=== PATIENT | female | born 1955 | race Caucasian/White ===

== ENCOUNTER 2018-12-07 21:37 | Emergency (ER) | payer MEDICARE, OTHER ==
[~2018-12-07] VITALS: Ht 152.4 cm; Wt 62.6 kg
[2018-12-07] MEDS ORDERED: FAMOTIDINE 20 MG (PEPCID) TABLET PO STA (22:01)
[2018-12-07] MEDS ORDERED: NS IV 1000 ML 1,000 ML IV SCH (22:01)
--- NOTE | 2018-12-07 22:08 | ED Abdominal Pain ---
General Stated Complaint: LT SIDE ABD PAIN Source of Information: Patient, Spouse Exam Limitations: No Limitations History of Present Illness Date Seen by Provider: December 07, 2018 Time Seen by Provider: 21:46 Initial Comments Patient presents to ER by private conveyance with her and chief complaint of left-sided upper quadrant abdominal pain that started about 6 hours ago and has only progressively gotten worse. It comes and goes. It worse despite a 7 out of 10. Worse with movement. She has a history of EGD demonstrating hiatal hernia but no abdominal surgeries. She has poor appetite. She has a history of GERD and was on a chronic anti-acid production medicine but she does not take that anymore. She did not try any antacids because she says this feels different than the burning sensation in her chest that she will get sometimes with her GERD. She has a history of being very constipated and earlier this afternoon had a rather large 7 bowel movement. She denies having colonoscopy or history of IBS/IBD. No blood in the stool. She has not taken anything for the pain. She denies any nausea fever chills cough shortness of breath or dysuria. Allergies and Home Medications Allergies Coded Allergies: Penicillins (Verified Allergy, Unknown, 12/07/18) dimenhydrinate (Verified Allergy, Unknown, 12/07/18) Patient Home Medication List Home Medication List Reviewed: Yes Review of Systems Review of Systems Constitutional: No chills, No fever, No malaise EENTM: No Blurred Vision, No Double Vision Respiratory: Denies Cough, Denies Shortness of Air Cardiovascular: Denies Chest Pain, Denies Lightheadedness Gastrointestinal: Denies Abdomen Distended; Abdominal Pain, Constipated ( chronic); Denies Diarrhea, Denies Nausea Genitourinary: Denies Burning, Denies Discharge Musculoskeletal: No back pain, No joint pain Skin: No pruritus, No rash Past Uhanbsx-Aewjhq-Xbrelm Hx Patient Social History Alcohol Use: Denies Use Recreational Drug Use: No Smoking Status: Never a Smoker Recent Foreign Travel: No Contact w/Someone Who Travel: No Physical Exam Vital Signs Vital Signs - First Documented 12/07/18 21:47 Temp 97.7 Pulse 100 Resp 20 B/P (MAP) 155/99 (117) Pulse Ox 96 Capillary Refill : Height/Weight/BMI Height: '" Weight: lbs. oz. kg; BMI Method: General Appearance: WD/WN, no apparent distress HEENT: PERRL/EOMI, pharynx normal (oropharynx mildly dry) Respiratory: no respiratory distress, no accessory muscle use Cardiovascular: normal peripheral pulses, regular rate, rhythm Peripheral Pulses: 2+ Dorsalis Pedis (R), 2+ Left Dors-Pedis (L) Gastrointestinal: normal bowel sounds (quiescent), soft, no organomegaly; No distended; other (epigastric and left upper quadrant mild tenderness to palpation. Negative for Jones sign, Rovsing or McBurney's point tenderness, rebound tenderness or other mesenteric signs such as psoas.) Extremities: non-tender, normal capillary refill Neurologic/Psychiatric: alert, normal mood/affect, oriented x 3 Skin: normal color, warm/dry Progress/Results/Core Measures Results/Orders Lab Results Laboratory Tests Test 12/07/18 22:05 12/07/18 22:19 Range/Units White Blood Count 15.6 H 4.3-11.0 10^3/uL Red Blood Count 4.86 4.35-5.85 10^6/uL Hemoglobin 15.2 11.5-16.0 G/DL Hematocrit 45 35-52 % Mean Corpuscular Volume 93 80-99 FL Mean Corpuscular Hemoglobin 31 25-34 PG Mean Corpuscular Hemoglobin Concent 34 32-36 G/DL Red Cell Distribution Width 13.2 10.0-14.5 % Platelet Count 240 130-400 10^3/uL Mean Platelet Volume 11.0 H 7.4-10.4 FL Neutrophils (%) (Auto) 87 H 42-75 % Lymphocytes (%) (Auto) 8 L 12-44 % Monocytes (%) (Auto) 4 0-12 % Eosinophils (%) (Auto) 0 0-10 % Basophils (%) (Auto) 0 0-10 % Neutrophils # (Auto) 13.6 H 1.8-7.8 X 10^3 Lymphocytes # (Auto) 1.2 1.0-4.0 X 10^3 Monocytes # (Auto) 0.7 0.0-1.0 X 10^3 Eosinophils # (Auto) 0.1 0.0-0.3 10^3/uL Basophils # (Auto) 0.1 0.0-0.1 10^3/uL Neutrophils % (Manual) 72 % Lymphocytes % (Manual) 8 % Monocytes % (Manual) 2 % Eosinophils % (Manual) 2 % Basophils % (Manual) 0 % Band Neutrophils 16 % Blood Morphology Comment NORMAL Sodium Level 143 135-145 MMOL/L Potassium Level 4.2 3.6-5.0 MMOL/L Chloride Level 103 98-107 MMOL/L Carbon Dioxide Level 22 21-32 MMOL/L Anion Gap 18 H 5-14 MMOL/L Blood Urea Nitrogen 21 H 7-18 MG/DL Creatinine 0.79 0.60-1.30 MG/DL Estimat Glomerular Filtration Rate > 60 BUN/Creatinine Ratio 27 Glucose Level 133 H 70-105 MG/DL Calcium Level 9.2 8.5-10.1 MG/DL Corrected Calcium 8.5-10.1 MG/DL Total Bilirubin 1.2 H 0.1-1.0 MG/DL Aspartate Amino Transf (AST/SGOT) 18 5-34 U/L Alanine Aminotransferase (ALT/SGPT) 12 0-55 U/L Alkaline Phosphatase 49 40-136 U/L Total Protein 7.2 6.4-8.2 GM/DL Albumin 4.6 H 3.2-4.5 GM/DL Lipase 26 8-78 U/L Urine Color YELLOW Urine Clarity CLOUDY Urine pH 8.0 5-9 Urine Specific [place] 1.010 L 1.016-1.022 Urine Protein 1+ H NEGATIVE Urine Glucose (UA) NEGATIVE NEGATIVE Urine Ketones TRACE H NEGATIVE Urine Nitrite POSITIVE H NEGATIVE Urine Bilirubin NEGATIVE NEGATIVE Urine Urobilinogen 0.2 NORMAL MG/DL Urine Leukocyte Esterase 3+ H NEGATIVE Urine RBC (Auto) 1+ H NEGATIVE Urine RBC 2-5 H /HPF Urine WBC 25-50 H /HPF Urine Squamous Epithelial Cells 5-10 /HPF Urine Crystals PRESENT H /LPF Urine Triple Phosphate Crystals LARGE H /LPF Urine Bacteria LARGE H /HPF Urine Casts NONE /LPF Urine Mucus NEGATIVE /LPF Urine Culture Indicated YES My Orders Orders - MJ ERICKSON Cbc With Automated Diff (12/07/18 22:00) Comprehensive Metabolic Panel (12/07/18 22:00) Lipase (12/07/18 22:00) Ed Iv/Invasive Line Start (12/07/18 22:01) Ns Iv 1000 Ml (Sodium Chloride 0.9%) (12/07/18 22:01) Lidocaine 2% Viscous 15 Ml (Xylocaine Vi (12/07/18 22:15) Famotidine Tablet (Pepcid Tablet) (12/07/18 22:01) Antacid Suspension (Mylanta Suspension (12/07/18 22:15) Manual Differential (12/07/18 22:05) Ua Culture If Indicated (12/07/18 22:18) Ct Abdomen/Pelvis W (12/07/18 22:36) Urine Culture (12/07/18 22:19) Iohexol Injection (Omnipaque 350 Mg/Ml 1 (12/07/18 22:45) Received Contrast (Hold Metformin- Contr (12/07/18 22:45) Ns (Ivpb) (Sodium Chloride 0.9% Ivpb Bag (12/07/18 22:45) Ceftriaxone For Iv Use (Rocephin For I (12/08/18 00:00) Ketorolac Injection (Toradol Injection) (12/08/18 00:00) Rx-Ondansetron Po (Rx-Zofran Po) (12/08/18 00:44) Medications Given in ED Current Medications Medications Dose Ordered Sig/Shiraz Route Start Time Stop Time Status Last Admin Dose Admin Al Hydrox/Mg Hydrox/Simethicone 30 ml ONCE ONCE PO 12/07/18 22:15 12/07/18 22:16 DC 12/07/18 22:19 30 ML Ceftriaxone Sodium 1000 mg/ Sterile Water 10 ml @ 200 mls/hr ONCE ONCE IV 12/08/18 00:00 12/08/18 00:02 DC 12/08/18 00:12 200 MLS/HR Iohexol 100 ml ONCE ONCE IV 12/07/18 22:45 12/07/18 22:46 DC 12/07/18 22:56 100 ML Ketorolac Tromethamine 30 mg ONCE ONCE IVP 12/08/18 00:00 12/08/18 00:02 DC 12/08/18 00:11 30 MG Lidocaine HCl 15 ml ONCE ONCE PO 12/07/18 22:15 12/07/18 22:16 DC 12/07/18 22:20 15 ML Sodium Chloride 100 ml ONCE ONCE IV 12/07/18 22:45 12/07/18 22:46 DC 12/07/18 22:56 100 ML Vital Signs/I&O 12/07/18 21:47 Temp 97.7 Pulse 100 Resp 20 B/P (MAP) 155/99 (117) Pulse Ox 96 12/08/18 00:00 Intake Total 1000 ml Balance 1000 ml Progress Progress Note #1: Time: 22:07 Progress Note Patient does not appear to be in a lot of acute distress or any give her a liter of fluids and as she seems to be chronically constipated with dehydration per her history. We will check some blood work included a lipase and give her a GI cocktail and then re-evaluate. Constipation, pancreatitis, gastritis, gastroenteritis, ulcer are all potential diagnoses. Progress Note #2: Time: 22:38 Progress Note The patient's pain improved significantly after the GI cocktail and she does not want anything further at the moment. She still having no nausea. Her in white blood cells are 15.6 thousand which is a modest elevation and has prompted us to go ahead and collect a CT of the abdomen and pelvis with contrast. Progress Note #3: Time: 00:05 Progress Note Plan to treat the patient's urinary tract infection with Rocephin. Her GI cocktails wearing off so we'll give her some Toradol. Suspects she has some gastritis possible ulcer but nothing seen on CT. We will allow her to go home she can follow-up in the next day or 2 with her primary care doctor and set up for another EGD. We offered her a referral to the surgeon contact lens blocker and cutter that she would prefer to see Dr. Mustafa first. We have offered her a stay in the hospital if she felt that her symptoms are not under adequate control but she would prefer to go home as would her . Diagnostic Imaging Diagonstic Imaging: CT (contrast) Plain Films/CT/US/NM/MRI: abdomen, pelvis Comments Thickening clean rectal vault correlate with infectious/inflammatory proctitis. Large hiatal hernia. Hepatic steatosis. Nonobstructive punctate stone in the left kidney. Reviewed: Reviewed by Me Departure Impression Primary Impression: Gastritis Qualified Codes: K29.00 - Acute gastritis without bleeding Additional Impressions: History of hiatal hernia UTI (urinary tract infection) Qualified Codes: N30.00 - Acute cystitis without hematuria Disposition: HOME, SELF-CARE Condition: Improved Departure-Patient Inst. Decision time for Depature: 01:07 Referrals: RICK MUSTAFA MD (PCP) Primary Care Physician Patient Instructions: Acute Cystitis (DC), Gastritis (DC), Ulcer and Gastritis Diet Add. Discharge Instructions: Follow-up in the next few days with Dr. mustafa to discuss getting another EGD done to diagnose your epigastric abdominal pain. Use Tylenol 1000 mg in addition to ibuprofen 800 mg every 8 hours each as needed for pain. Use omeprazole 40 mg daily for the next 4 weeks. Use the Carafate 1 tablet 30 minutes before meals and at bedtime (4 times a day ) for the next 2 weeks to help calm down your abdominal pain. If you have nausea use one tablet of Zofran every 6 hours as needed. upfitter the antibiotics and take one capsule twice a day with food for the next week. If you have significant fever, intractable abdominal pain or nausea vomiting then you should return to the ER. Scripts Sucralfate (Carafate) 1 Gm Tablet 1 GM PO QIDACHS for 14 Days, #56 TAB 0 Refills Prov: MJ ERICKSON 12/08/18 Omeprazole (Omeprazole) 40 Mg Capsule.dr 40 MG PO DAILY for 30 Days, #30 CAP 0 Refills Prov: MJ ERICKSON 12/08/18 Ondansetron (Ondansetron Odt) 4 Mg Tab.rapdis 4 MG PO Q6H PRN for NAUSEA/VOMITING-1ST LINE, #8 TAB 0 Refills Prov: MJ ERICKSON 12/08/18 Cephalexin (Cephalexin) 500 Mg Tablet 500 MG PO BID for 7 Days, #14 TAB 0 Refills Prov: MJ ERICKSON 12/08/18 MJ ERICKSON December 07, 2018 22:08
[2018-12-07 22:14] LABS: BASOPHILS # (AUTO) 0.1 10^3/uL (0.0-0.1); BASOPHILS % (AUTO) 0 % (0-10); EOSINOPHILS # (AUTO) 0.1 10^3/uL (0.0-0.3); EOSINOPHILS % (AUTO) 0 % (0-10); HEMATOCRIT 45 % (35-52); HEMOGLOBIN 15.2 G/DL (11.5-16.0); LYMPHOCYTES # (AUTO) 1.2 X 10^3 (1.0-4.0); LYMPHOCYTES % (AUTO) 8 % (12-44); MEAN CORPUSCULAR HEMOGLOBIN 31 PG (25-34); MEAN CORPUSCULAR HGB CONC 34 G/DL (32-36); MEAN CORPUSCULAR VOLUME 93 FL (80-99); MONOCYTES # (AUTO) 0.7 X 10^3 (0.0-1.0); MONOCYTES % (AUTO) 4 % (0-12); NEUTROPHILS # (AUTO) 13.6 X 10^3 (1.8-7.8); NEUTROPHILS % (AUTO) 87 % (42-75); PLATELET COUNT 240 10^3/uL (130-400); RED CELL DISTRIBUTION WIDTH 13.2 % (10.0-14.5); WHITE BLOOD COUNT 15.6 10^3/uL (4.3-11.0)
[2018-12-07] MEDS ORDERED: ANTACID SUSP 30 ML UDC (MYLANTA) PO ONE (22:15)
[2018-12-07] MEDS ORDERED: LIDOCAINE 2% VISCOUS 15 ML UDC PO ONE (22:15)
[2018-12-07 22:26] LABS: BUN/CREATININE RATIO 27; CARBON DIOXIDE 22 MMOL/L (21-32); CHLORIDE 103 MMOL/L (98-107); CREATININE SERUM 0.79 MG/DL (0.60-1.30); GFR ESTIMATED > 60; GLUCOSE 133 MG/DL (70-105); POTASSIUM 4.2 MMOL/L (3.6-5.0); SODIUM 143 MMOL/L (135-145)
[2018-12-07 22:27] LABS: ALANINE AMINOTRANSFERASE 12 U/L (0-55); ALBUMIN 4.6 GM/DL (3.2-4.5); ALKALINE PHOSPHATASE 49 U/L (40-136); BILIRUBIN,TOTAL 1.2 MG/DL (0.1-1.0); CALCIUM 9.2 MG/DL (8.5-10.1); LIPASE 26 U/L (8-78); TOTAL PROTEIN 7.2 GM/DL (6.4-8.2)
[2018-12-07 22:36] LABS: BILIRUBIN,URINE NEGATIVE (NEGATIVE); CLARITY,URINE CLOUDY; COLOR,URINE YELLOW; GLUCOSE, URINE (UA) NEGATIVE (NEGATIVE); KETONES,URINE TRACE (NEGATIVE); LEUKOCYTE ESTERASE ,URINE 3+ (NEGATIVE); NITRITE,URINE POSITIVE (NEGATIVE); PROTEIN,URINE 1+ (NEGATIVE); UROBILINOGEN,URINE 0.2 MG/DL (NORMAL)
[2018-12-07 22:37] LABS: BACTERIA,URINE LARGE /HPF; TRIPLE PHOSPHATE CRYSTAL,UR LARGE /LPF; WBC,URINE 25-50 /HPF
[2018-12-07 22:38] LABS: BAND NEUTROPHILS 16 %; BASOPHILS % (MANUAL) 0 %; EOSINOPHILS % (MANUAL) 2 %; LYMPHOCYTES % (MANUAL) 8 %; MONOCYTES % (MANUAL) 2 %; NEUTROPHILS % (MANUAL) 72 %; RBC MORPH NORMAL
[2018-12-07] MEDS ORDERED: HOLD METFORMIN - RECEIVED CONTRAST 20 ML VIAL IV SCH (22:45)
[2018-12-07] MEDS ORDERED: NS 100 ML (IVPB) BAG IV ONE (22:45)
[2018-12-07] MEDS ORDERED: IOHEXOL 350 MG/ML 100 ML (OMNIPAQUE 350) VIAL IV ONE (22:45)
[2018-12-08] MEDS ORDERED: cefTRIAXone FOR IV USE 1,000 MG in WATER (STERILE) FOR INJECTION 10 ML IV ONE ×2
[2018-12-08] MEDS ORDERED: KETOROLAC 30 MG/ML VIAL IVP ONE
[2018-12-08] MEDS ORDERED: RX-ONDANSETRON 4 MG ODT (ZOFRAN) PPK #4 PO STA (00:44)
[2018-12-08] MEDS ORDERED: CEPH500T PO (01:13)
[2018-12-08] MEDS ORDERED: OMEP40CA36 PO (01:13)
[2018-12-08] MEDS ORDERED: SUCR1TAB36 PO (01:13)
[2018-12-08] MEDS ORDERED: ONDA4TAB11 PO (01:13)
[2018-12-08 01:23] VITALS: BP 140/82
--- NOTE | 2018-12-08 07:02 | Diagnostic Imaging Report ---
PROCEDURE: CT abdomen and pelvis with contrast. TECHNIQUE: Multiple contiguous axial images were obtained through the abdomen and pelvis after administration of intravenous contrast. Auto Exposure Controls were utilized during the CT exam to meet ALARA standards for radiation dose reduction. DATE: December 07, 2018. COMPARISON: None. INDICATION: 63-year-old female, left-sided abdominal pain. Nausea, vomiting, diarrhea. FINDINGS: There is mild atelectasis in the lung bases. The heart is not grossly enlarged. There is no pericardial effusion. The liver is unremarkable in size and contour. There is a 3 mm low-attenuation lesion in the right lobe of the liver on axial image 26 which is too small to characterize. The main, right, and left portal veins are patent. The gallbladder is unremarkable. There is no intrahepatic or extrahepatic bile duct dilation. The main pancreatic duct is not abnormally dilated. Unremarkable appearance of the pancreatic parenchyma. The spleen is normal in size. The adrenal glands are unremarkable. There are subcentimeter low-attenuation right renal lesions on axial image 23 which are too small to characterize. There is no hydronephrosis. There is no identified renal or ureteral stone. The urinary bladder is grossly unremarkable in appearance. The uterus is not seen and may be surgically absent. There is very prominent abnormal wall thickening at the level of the rectum with prominent adjacent inflammatory stranding and fluid type attenuation in the presacral soft tissues. The intestinal tract is not distended. The appendix is not well seen. There are no secondary findings to specifically suggest acute appendicitis. There is no free intraperitoneal air. There is no drainable fluid collection. There is a moderate to large hiatal hernia. There is no identified abnormally enlarged lymph node in the abdomen or pelvis which meets CT size criteria for adenopathy. Very mild atherosclerotic calcifications are noted. There is no identified acute bony abnormality. IMPRESSION: CT ABDOMEN AND PELVIS. 1. Very prominent abnormal wall thickening at the level of the rectum with adjacent inflammatory stranding and fluid in the pre-sacral soft tissues. Differential diagnostic considerations would include an infectious or inflammatory colitis. Malignancy is also in the differential diagnosis. 2. Moderate to large hiatal hernia. Dictated by: Dictated on workstation # [id number]
== END 2018-12-08 01:23 | disposition home or self-care (01) ==
LOC: ER FS 21:39
DX: K29.70 Gastritis, unspecified, without bleeding (principal); N39.0 Urinary tract infection, site not specified; K21.9 Gastro-esophageal reflux disease without esophagitis; Z88.0 Allergy status to penicillin; Z88.8 Allergy status to other drugs, medicaments and biological substances; Z87.19 Personal history of other diseases of the digestive system
CPT/HCPCS: 36415; 74177; 80053; 81000; 83690; 85007; 85027; 87077; 87088

== ENCOUNTER 2019-02-02 19:45 | Emergency (ER) | payer MEDICARE ==
[~2019-02-02] VITALS: Ht 152.4 cm; Wt 62.6 kg
[~2019-02-02 19:45] MED LIST: CEPH500T PO; OMEP40CA36 PO; ONDA4TAB11 PO; SUCR1TAB36 PO
--- OUTSIDE RECORDS SUMMARY | 2019-02-02 19:55 | XMS REPORT | Continuity of Care Document ---
Author Organization Unknown Address Unknown Allergies Active Description Code Type Severity Reaction Onset Reported/Identified Relationship to Patient Clinical Status Yes dimenhydrinate [id number] Drug Allergy Unknown N/A 12/07/2018 Yes No Known Drug Allergies [id number] Drug Allergy Unknown N/A 12/07/2018 Yes Penicillins [id number] Drug Allergy Unknown N/A 12/07/2018 Medications There is no data. Problems Date Dx Coded Attending Type Code Diagnosis Diagnosed By 12/08/2018 MJ ERICKSON MD Ot K21.9 GASTRO-ESOPHAGEAL REFLUX DISEASE WITHOUT 12/08/2018 MJ ERICKSON MD Ot K29.70 GASTRITIS, UNSPECIFIED, WITHOUT BLEEDING 12/08/2018 MJ ERICKSON MD Ot N39.0 URINARY TRACT INFECTION, SITE NOT SPECIF 12/08/2018 MJ ERICKSON MD Ot R10.12 LEFT UPPER QUADRANT PAIN 12/08/2018 MJ ERICKSON MD Ot Z87.19 PERSONAL HISTORY OF OTHER DISEASES OF 12/08/2018 MJ ERICKSON MD Ot Z88.0 ALLERGY STATUS TO PENICILLIN 12/08/2018 MJ ERICKSON MD Ot Z88.8 ALLERGY STATUS TO OTH DRUG/MEDS/BIOL SUB 12/09/2018 MJ ERICKSON MD Ot K21.9 GASTRO-ESOPHAGEAL REFLUX DISEASE WITHOUT 12/09/2018 MJ ERICKSON MD Ot K29.70 GASTRITIS, UNSPECIFIED, WITHOUT BLEEDING 12/09/2018 MJ ERICKSON MD Ot N39.0 URINARY TRACT INFECTION, SITE NOT SPECIF 12/09/2018 MJ ERICKSON MD Ot R10.12 LEFT UPPER QUADRANT PAIN 12/09/2018 MJ ERICKSON MD Ot Z87.19 PERSONAL HISTORY OF OTHER DISEASES OF 12/09/2018 MJ ERICKSON MD Ot Z88.0 ALLERGY STATUS TO PENICILLIN 12/09/2018 MJ ERICKSON MD Ot Z88.8 ALLERGY STATUS TO OTH DRUG/MEDS/BIOL SUB 12/13/2018 MJ ERICKSON MD Ot K21.9 GASTRO-ESOPHAGEAL REFLUX DISEASE WITHOUT 12/13/2018 MJ ERICKSON MD, Ot K29.70 GASTRITIS, UNSPECIFIED, WITHOUT BLEEDING 12/13/2018 MJ ERICKSON MD Ot N39.0 URINARY TRACT INFECTION, SITE NOT SPECIF 12/13/2018 MJ ERICKSON MD Ot R10.12 LEFT UPPER QUADRANT PAIN 12/13/2018 MJ ERICKSON MD, Ot Z87.19 PERSONAL HISTORY OF OTHER DISEASES OF TH 12/13/2018 MJ ERICKSON MD, Ot Z88.0 ALLERGY STATUS TO PENICILLIN 12/13/2018 MJ ERICKSON MD, Ot Z88.8 ALLERGY STATUS TO OTH DRUG/MEDS/BIOL SUB Procedures There is no data. Results Test Result Range Complete blood count (CBC) with automated white blood cell (WBC) differential - 12/07/18 22:05 Blood leukocytes automated count (number/volume) 15.6 10*3/uL 4.3-11.0 Blood erythrocytes automated count (number/volume) 4.86 10*6/uL 4.35-5.85 Venous blood hemoglobin measurement (mass/volume) 15.2 g/dL 11.5-16.0 Blood hematocrit (volume fraction) 45 % 35-52 Automated erythrocyte mean corpuscular volume 93 [foz_us] 80-99 Automated erythrocyte mean corpuscular hemoglobin (mass per erythrocyte) 31 pg 25-34 Automated erythrocyte mean corpuscular hemoglobin concentration measurement (mass/volume) 34 g/dL 32-36 Automated erythrocyte distribution width ratio 13.2 % 10.0- 14.5 Automated blood platelet count (count/volume) 240 10*3/uL 130-400 Automated blood platelet mean volume measurement 11.0 [foz_us] 7.4-10.4 Automated blood neutrophils/100 leukocytes 87 % 42-75 Automated blood lymphocytes/100 leukocytes 8 % 12-44 Blood monocytes/100 leukocytes 4 % 0-12 Automated blood eosinophils/100 leukocytes 0 % 0-10 Automated blood basophils/100 leukocytes 0 % 0-10 Blood neutrophils automated count (number/volume) 13.6 10*3 1.8-7.8 Blood lymphocytes automated count (number/volume) 1.2 10*3 1.0-4.0 Blood monocytes automated count (number/volume) 0.7 10*3 0.0- 1.0 Automated eosinophil count 0.1 10*3/uL 0.0-0.3 Automated blood basophil count (count/volume) 0.1 10*3/uL 0.0-0.1 Comprehensive metabolic panel - 12/07/18 22:05 Serum or plasma sodium measurement (moles/volume) 143 mmol/L 135-145 Serum or plasma potassium measurement (moles/volume) 4.2 mmol/L 3.6-5.0 Serum or plasma chloride measurement (moles/volume) 103 mmol/L 98-107 Carbon dioxide 22 mmol/L 21-32 Serum or plasma anion gap determination (moles/volume) 18 mmol/L 5-14 Serum or plasma urea nitrogen measurement (mass/volume) 21 mg/dL 7-18 Serum or plasma creatinine measurement (mass/volume) 0.79 mg/dL 0.60-1.30 Serum or plasma urea nitrogen/creatinine mass ratio 27 NRG Serum or plasma creatinine measurement with calculation of estimated glomerular filtration rate > NRG Serum or plasma glucose measurement (mass/volume) 133 mg/dL 70-105 Serum or plasma calcium measurement (mass/volume) 9.2 mg/dL 8.5-10.1 Serum or plasma total bilirubin measurement (mass/volume) 1.2 mg/dL 0.1-1.0 Serum or plasma alkaline phosphatase measurement (enzymatic activity/volume) 49 U/L 40-136 Serum or plasma aspartate aminotransferase measurement (enzymatic activity/volume) 18 U/L 5-34 Serum or plasma alanine aminotransferase measurement (enzymatic activity/volume) 12 U/L 0-55 Serum or plasma protein measurement (mass/volume) 7.2 g/dL 6.4-8.2 Serum or plasma albumin measurement (mass/volume) 4.6 g/dL 3.2-4.5 Lipase - 12/07/18 22:05 Lipase 26 U/L 8-78 Blood manual differential performed detection - 12/07/18 22:05 Blood monocytes/100 leukocytes 2 % NRG Manual blood segmented neutrophils/100 leukocytes 72 % NRG Blood band neutrophils/100 leukocytes 16 % NRG Manual blood lymphocytes/100 leukocytes 8 % NRG Manual eosinophils/100 leukocytes in nose 2 % NRG Manual blood basophils/100 leukocytes 0 % NRG Blood erythrocyte morphology finding identification NORMAL NRG Complete urinalysis with reflex to culture - 12/07/18 22:19 Urine color determination YELLOW NRG Urine clarity determination CLOUDY NRG Urine pH measurement by test strip 8.0 5-9 Specific gravity of urine by test strip 1.010 1.016-1.022 Urine protein assay by test strip, semi-quantitative 1+ NEGATIVE Urine glucose detection by automated test strip NEGATIVE NEGATIVE Erythrocytes detection in urine sediment by light microscopy 1+ NEGATIVE Urine ketones detection by automated test strip TRACE NEGATIVE Urine nitrite detection by test strip POSITIVE NEGATIVE Urine total bilirubin detection by test strip NEGATIVE NEGATIVE Urine urobilinogen measurement by automated test strip (mass/volume) 0.2 mg/dL NORMAL Urine leukocyte esterase detection by dipstick 3+ NEGATIVE Automated urine sediment erythrocyte count by microscopy (number/high power field) [HPF] NRG Automated urine sediment leukocyte count by microscopy (number/high power field) [HPF] NRG Bacteria detection in urine sediment by light microscopy LARGE NRG Squamous epithelial cells detection in urine sediment by light microscopy 5-10 NRG Crystals detection in urine sediment by light microscopy PRESENT NRG Casts detection in urine sediment by light microscopy NONE NRG Mucus detection in urine sediment by light microscopy NEGATIVE NRG Complete urinalysis with reflex to culture YES NRG Triple phosphate crystals detection in urine sediment by light microscopy LARGE NRG Bacterial urine culture - 12/07/18 22:19 Bacterial urine culture [id number] NRG COLONY COUNT >100,000/ML NRG FTX;REPORTABLE SUSCEPTIBILITY REPORTED [id number] NRG RML Sensitivity Panel - 12/07/18 22:19 Gentamicin susceptibility test by minimum inhibitory concentration <= NRG Trimethoprim/sulfamethoxazole susceptibility test by minimum inhibitoryconcentration S NRG Levofloxacin susceptibility test by minimum inhibitory concentration <= NRG Ampicillin susceptibility test by minimum inhibitory concentration R NRG Cefazolin susceptibility test by minimum inhibitory concentration R NRG Ceftriaxone susceptibility test by minimum inhibitory concentration <= NRG Ciprofloxacin susceptibility test by minimum inhibitory concentration <= NRG Meropenem susceptibility test by minimum inhibitory concentration <= NRG Nitrofurantoin susceptibility test by minimum inhibitory concentration > NRG Amoxicillin and clavulanate potassium susc ADELINA <= NRG Encounters ACCT No. Visit Date/Time Discharge Status Pt. Type Provider Facility Loc./Unit Complaint [id number] 12/07/2018 21:39:00 12/08/2018 01:23:00 DIS Emergency DRE JARRELL, [facility] ER FS LT SIDE ABD PAIN
--- NOTE | 2019-02-02 19:56 | ED Abdominal Pain ---
General Stated Complaint: PAIN IN LT SIDE ABD Source of Information: Patient, Old Records, RN Notes Reviewed Exam Limitations: No Limitations History of Present Illness Date Seen by Provider: Feb 02, 2019 Time Seen by Provider: 19:56 Allergies and Home Medications Allergies Coded Allergies: Penicillins (Verified Allergy, Unknown, 12/07/18) dimenhydrinate (Verified Allergy, Unknown, 12/07/18) Home Medications Cephalexin 500 Mg Tablet, 500 MG PO BID Prescribed by: MJ ERICKSON on 12/08/18112 Omeprazole 40 Mg Capsule.dr, 40 MG PO DAILY Prescribed by: MJ ERICKSON on 12/08/18112 Ondansetron 4 Mg Tab.rapdis, 4 MG PO Q6H PRN for NAUSEA/VOMITING-1ST LINE Prescribed by: MJ ERICKSON on 12/08/18112 Sucralfate 1 Gm Tablet, 1 GM PO QIDACHS Prescribed by: MJ ERICKSON on 12/08/18112 Past Uzlbqht-Wjznxj-Aemnhj Hx Patient Social History 2nd Hand Smoke Exposure: No Recent Foreign Travel: No Contact w/Someone Who Travel: No Recent Hopitalizations: No Seasonal Allergies Seasonal Allergies: Yes Past Medical History Surgeries: Yes (MULTIPLE ORTHO ON BILATERAL LEGS) Appendectomy, Orthopedic Respiratory: No Cardiac: No Neurological: No Genitourinary: No (INCONTINENCE) Gastroesophageal Reflux, Hiatal Hernia Musculoskeletal: Yes (POLIO) Foot Drop Endocrine: No HEENT: No Cancer: No Psychosocial: No Integumentary: No Blood Disorders: No Physical Exam Vital Signs Vital Signs - First Documented 02/02/19 19:48 Temp 98.6 Pulse 72 Resp 16 B/P (MAP) 141/69 (93) Pulse Ox 97 O2 Delivery Room Air Capillary Refill : Height/Weight/BMI Height: 5'0" Weight: 138lbs. 0oz. 62.767057gi; BMI Method:Stated Progress/Results/Core Measures Results/Orders Lab Results Laboratory Tests Test 02/02/19 20:15 02/02/19 22:00 Range/Units White Blood Count 6.9 4.3-11.0 10^3/uL Red Blood Count 4.62 4.35-5.85 10^6/uL Hemoglobin 14.1 11.5-16.0 G/DL Hematocrit 43 35-52 % Mean Corpuscular Volume 93 80-99 FL Mean Corpuscular Hemoglobin 31 25-34 PG Mean Corpuscular Hemoglobin Concent 33 32-36 G/DL Red Cell Distribution Width 13.2 10.0-14.5 % Platelet Count 233 130-400 10^3/uL Mean Platelet Volume 10.9 H 7.4-10.4 FL Neutrophils (%) (Auto) 60 42-75 % Lymphocytes (%) (Auto) 29 12-44 % Monocytes (%) (Auto) 8 0-12 % Eosinophils (%) (Auto) 3 0-10 % Basophils (%) (Auto) 1 0-10 % Neutrophils # (Auto) 4.1 1.8-7.8 X 10^3 Lymphocytes # (Auto) 2.0 1.0-4.0 X 10^3 Monocytes # (Auto) 0.6 0.0-1.0 X 10^3 Eosinophils # (Auto) 0.2 0.0-0.3 10^3/uL Basophils # (Auto) 0.1 0.0-0.1 10^3/uL Sodium Level 144 135-145 MMOL/L Potassium Level 3.6 3.6-5.0 MMOL/L Chloride Level 104 98-107 MMOL/L Carbon Dioxide Level 26 21-32 MMOL/L Anion Gap 14 5-14 MMOL/L Blood Urea Nitrogen 22 H 7-18 MG/DL Creatinine 0.81 0.60-1.30 MG/DL Estimat Glomerular Filtration Rate > 60 BUN/Creatinine Ratio 27 Glucose Level 101 70-105 MG/DL Calcium Level 9.8 8.5-10.1 MG/DL Corrected Calcium 9.4 8.5-10.1 MG/DL Total Bilirubin 1.2 H 0.1-1.0 MG/DL Aspartate Amino Transf (AST/SGOT) 17 5-34 U/L Alanine Aminotransferase (ALT/SGPT) 12 0-55 U/L Alkaline Phosphatase 58 40-136 U/L Total Protein 6.9 6.4-8.2 GM/DL Albumin 4.5 3.2-4.5 GM/DL Lipase 41 8-78 U/L Urine Color YELLOW Urine Clarity CLEAR Urine pH 7.0 5-9 Urine Specific [place] <1.005 1.016-1.022 Urine Protein NEGATIVE NEGATIVE Urine Glucose (UA) NEGATIVE NEGATIVE Urine Ketones NEGATIVE NEGATIVE Urine Nitrite NEGATIVE NEGATIVE Urine Bilirubin NEGATIVE NEGATIVE Urine Urobilinogen 0.2 NORMAL MG/DL Urine Leukocyte Esterase NEGATIVE NEGATIVE Urine RBC (Auto) NEGATIVE NEGATIVE Urine RBC NONE /HPF Urine WBC NONE /HPF Urine Squamous Epithelial Cells 5-10 /HPF Urine Crystals NONE /LPF Urine Bacteria NONE /HPF Urine Casts NONE /LPF Urine Mucus NEGATIVE /LPF Urine Culture Indicated NO My Orders Orders - GISELLA ZARATE DO Ed Iv/Invasive Line Start (02/02/19 20:06) Cbc With Automated Diff (02/02/19 20:06) Comprehensive Metabolic Panel (02/02/19 20:06) Lipase (02/02/19 20:06) Ua Culture If Indicated (02/02/19 20:06) Ct Abdomen/Pelvis W (02/02/19 21:07) Iohexol Injection (Omnipaque 350 Mg/Ml 1 (02/02/19 21:30) Received Contrast (Hold Metformin- Contr (02/02/19 21:30) Ns (Ivpb) (Sodium Chloride 0.9% Ivpb Bag (02/02/19 21:30) Ketorolac Injection (Toradol Injection) (02/02/19 22:30) Pantoprazole Tablet (Protonix Tablet) (02/02/19 22:30) Medications Given in ED Current Medications Medications Dose Ordered Sig/Shiraz Route Start Time Stop Time Status Last Admin Dose Admin Iohexol 100 ml ONCE ONCE IV 02/02/19 21:30 02/02/19 21:31 DC 02/02/19 21:26 100 ML Sodium Chloride 100 ml ONCE ONCE IV 02/02/19 21:30 02/02/19 21:31 DC 02/02/19 21:26 100 ML Vital Signs/I&O 02/02/19 19:48 Temp 98.6 Pulse 72 Resp 16 B/P (MAP) 141/69 (93) Pulse Ox 97 O2 Delivery Room Air Departure Impression Primary Impression: Left upper quadrant abdominal pain of unknown etiology Additional Impressions: Hiatal hernia Proctocolitis Disposition: HOME, SELF-CARE Condition: Stable Departure-Patient Inst. Decision time for Depature: 22:33 Referrals: SELFRICK MD (PCP) Primary Care Physician Patient Instructions: Hiatal Hernia (DC), Proctitis Add. Discharge Instructions: RECOMMEND OBTAINING A REFERRAL FROM YOUR PCP FOR A COLONOSCOPY TO EVALUATE YOUR RECTUM BETTER. Scripts Ondansetron (Ondansetron Odt) 4 Mg Tab.rapdis 4 MG PO Q6H PRN for NAUSEA/VOMITING, #10 TAB 1 Refill Prov: GISELLA ZARATE DO 02/02/19 Sucralfate (Carafate) 1 Gm Tablet 1 GM PO ACHS for 30 Days, #120 TAB 2 Refills Prov: GISELLA ZARATE DO 02/02/19 Esomeprazole Magnesium (Nexium 24Hr) 20 Mg Capsule.dr 20 MG PO DAILY for 30 Days, #30 CAP 2 Refills Prov: GISELLA ZARATE DO 02/02/19 GISELLA ZARATE DO Feb 02, 2019 19:56
[2019-02-02 20:21] LABS: HEMATOCRIT 43 % (35-52); HEMOGLOBIN 14.1 G/DL (11.5-16.0); MEAN CORPUSCULAR HEMOGLOBIN 31 PG (25-34); MEAN CORPUSCULAR HGB CONC 33 G/DL (32-36); MEAN CORPUSCULAR VOLUME 93 FL (80-99); WHITE BLOOD COUNT 6.9 10^3/uL (4.3-11.0)
[2019-02-02 20:22] LABS: BASOPHILS # (AUTO) 0.1 10^3/uL (0.0-0.1); BASOPHILS % (AUTO) 1 % (0-10); EOSINOPHILS # (AUTO) 0.2 10^3/uL (0.0-0.3); EOSINOPHILS % (AUTO) 3 % (0-10); LYMPHOCYTES % (AUTO) 29 % (12-44); MEAN PLATELET VOLUME 10.9 FL (7.4-10.4); MONOCYTES # (AUTO) 0.6 X 10^3 (0.0-1.0); MONOCYTES % (AUTO) 8 % (0-12); NEUTROPHILS # (AUTO) 4.1 X 10^3 (1.8-7.8); NEUTROPHILS % (AUTO) 60 % (42-75); PLATELET COUNT 233 10^3/uL (130-400); RED CELL DISTRIBUTION WIDTH 13.2 % (10.0-14.5)
[2019-02-02 20:41] LABS: ALANINE AMINOTRANSFERASE 12 U/L (0-55); ALBUMIN 4.5 GM/DL (3.2-4.5); ALKALINE PHOSPHATASE 58 U/L (40-136); BILIRUBIN,TOTAL 1.2 MG/DL (0.1-1.0); BUN/CREATININE RATIO 27; CALCIUM 9.8 MG/DL (8.5-10.1); CARBON DIOXIDE 26 MMOL/L (21-32); CHLORIDE 104 MMOL/L (98-107); CREATININE SERUM 0.81 MG/DL (0.60-1.30); GFR ESTIMATED > 60; GLUCOSE 101 MG/DL (70-105); LIPASE 41 U/L (8-78); POTASSIUM 3.6 MMOL/L (3.6-5.0); SODIUM 144 MMOL/L (135-145); TOTAL PROTEIN 6.9 GM/DL (6.4-8.2)
[2019-02-02] MEDS ORDERED: HOLD METFORMIN - RECEIVED CONTRAST 20 ML VIAL IV SCH (21:30)
[2019-02-02] MEDS ORDERED: IOHEXOL 350 MG/ML 100 ML (OMNIPAQUE 350) VIAL IV ONE (21:30)
[2019-02-02] MEDS ORDERED: NS 100 ML (IVPB) BAG IV ONE (21:30)
--- NOTE | 2019-02-02 21:51 | Diagnostic Imaging Report ---
PROCEDURE: CT abdomen and pelvis with contrast. TECHNIQUE: Multiple contiguous axial images were obtained through the abdomen and pelvis after administration of intravenous contrast. Auto Exposure Controls were utilized during the CT exam to meet ALARA standards for radiation dose reduction. INDICATION: Left side abdominal pain for 2-3 days. Correlation is made with prior CT from 12/07/2018. A moderate-sized hiatal hernia is noted. Lung bases are clear. Mild generalized low density throughout the liver is noted consistent with hepatic steatosis. No discrete liver mass is seen. Gallbladder is unremarkable. There is no biliary ductal dilatation. Pancreas and spleen are unremarkable. There is no adrenal mass identified. Kidneys are unremarkable. Aorta is non-aneurysmal. Small and large bowel loops are of normal caliber. No evidence of obstruction. Area of presacral thickening and stranding has improved since examination from 12/07/2018. There is some mild residual presacral thickening. The degree of rectal wall thickening has improved as well. Bladder is unremarkable. No lymphadenopathy is seen. Bony structures are unremarkable. IMPRESSION: 1. Moderate size hiatal hernia. 2. Hepatic steatosis. Overall improvement in the abdomen and pelvis since prior study 2 months earlier. The presacral stranding and rectal wall thickening does show some improvement but does still partially remain. Continued followup is recommended. No new abnormality is seen. Dictated by: Dictated on workstation # [id number]
[2019-02-02 22:13] LABS: CLARITY,URINE CLEAR; COLOR,URINE YELLOW; GLUCOSE, URINE (UA) NEGATIVE (NEGATIVE); KETONES,URINE NEGATIVE (NEGATIVE); PROTEIN,URINE NEGATIVE (NEGATIVE)
[2019-02-02 22:14] LABS: BILIRUBIN,URINE NEGATIVE (NEGATIVE); LEUKOCYTE ESTERASE ,URINE NEGATIVE (NEGATIVE); NITRITE,URINE NEGATIVE (NEGATIVE); UROBILINOGEN,URINE 0.2 MG/DL (NORMAL)
[2019-02-02] MEDS ORDERED: KETOROLAC 30 MG/ML VIAL IVP ONE (22:30)
[2019-02-02] MEDS ORDERED: PANTOPRAZOLE 40 MG (PROTONIX) TAB PO ONE (22:30)
[2019-02-02] MEDS ORDERED: ESOM20CA58 PO (22:36)
[2019-02-02] MEDS ORDERED: SUCR1TAB36 PO (22:36)
[2019-02-02] MEDS ORDERED: ONDA4TAB11 PO (22:37)
[2019-02-02 22:45] VITALS: BP 168/89
== END 2019-02-02 22:45 | disposition home or self-care (01) ==
LOC: EDUNIT# 19:45 → ER FS 19:46
DX: K44.9 Diaphragmatic hernia without obstruction or gangrene (principal); K51.30 Ulcerative (chronic) rectosigmoiditis without complications; K21.9 Gastro-esophageal reflux disease without esophagitis; Z86.12 Personal history of poliomyelitis; Z88.0 Allergy status to penicillin; Z88.8 Allergy status to other drugs, medicaments and biological substances; Z90.49 Acquired absence of other specified parts of digestive tract
CPT/HCPCS: 36415; 74177; 80053; 81000; 83690; 85025

== ENCOUNTER → 2019-10-28 | Outpatient (CLI) | payer MEDICARE ==
[~2019-10-28] MED LIST changes: +ESOM20CA58 PO; +GADOBUTROL 7.5 MMOL/7.5 ML (GADAVIST) VIAL IV ONE; +OMEP40CA27 PO; -OMEP40CA36 PO
[2019-10-28 09:58] LABS: ALANINE AMINOTRANSFERASE 14 U/L (0-55); ALBUMIN 4.4 GM/DL (3.2-4.5); ALKALINE PHOSPHATASE 58 U/L (40-136); BILIRUBIN,TOTAL 1.1 MG/DL (0.1-1.0); BUN/CREATININE RATIO 25; CALCIUM 9.6 MG/DL (8.5-10.1); CARBON DIOXIDE 27 MMOL/L (21-32); CHLORIDE 109 MMOL/L (98-107); CREATININE SERUM 0.77 MG/DL (0.60-1.30); GFR ESTIMATED > 60; GLUCOSE 94 MG/DL (70-105); POTASSIUM 3.9 MMOL/L (3.6-5.0); SODIUM 146 MMOL/L (135-145); TOTAL PROTEIN 6.7 GM/DL (6.4-8.2)
--- NOTE | 2019-10-28 13:07 | Diagnostic Imaging Report ---
PROCEDURE: MR imaging of the brain with and without contrast. TECHNIQUE: Multiplanar, multisequence MR imaging of the brain was performed with and without contrast. INDICATION: Irregular heart rate. Labile blood pressure. Bilateral lower extremity weakness. COMPARISON: None. FINDINGS: Moderate generalized cerebral and cerebellar parenchymal volume loss. Moderate nonspecific T2 hyperintensities in the supratentorial white matter compatible with chronic small vessel ischemic change. No restricted water diffusion or hemosiderin deposition. Normal morphology including the major midline structures, sella, posterior fossa and cerebellar pontine angle. No hydrocephalus or extra-axial fluid collections. Normal intracranial flow voids. The orbits are negative on this non-dedicated exam. Paranasal sinuses and mastoids are clear. Normal bone marrow signal. IMPRESSION: Age-appropriate MRI of the brain without and with IV contrast. No acute findings. Dictated by: Dictated on workstation # [id number]
== END ==
LOC: CARD 09:18
PROVIDERS: ATTEND Nurse Practitioner Family
DX: R00.2 Palpitations (principal); R29.898 Other symptoms and signs involving the musculoskeletal system; I35.0 Nonrheumatic aortic (valve) stenosis
CPT/HCPCS: 36415; 70553; 80053; 93225; 93226; 93306

== ENCOUNTER 2020-01-11 16:34 | Emergency (ER) | payer MEDICARE ==
[~2020-01-11] VITALS: Ht 152.4 cm; Wt 61.4 kg
[~2020-01-11 16:34] MED LIST changes: -GADOBUTROL 7.5 MMOL/7.5 ML (GADAVIST) VIAL IV ONE
[2020-01-11] MEDS ORDERED: NS IV 500 ML 500 ML IV STA (16:50)
--- NOTE | 2020-01-11 16:57 | ED General ---
General Stated Complaint: HIGH BLOOD PRESSURE Source of Information: Patient History of Present Illness Date Seen by Provider: Jan 11, 2020 Time Seen by Provider: 16:36 Initial Comments 64-year-old female presenting with complaints of her heart racing. She states that she can feel her heartbeat throughout her body. She insists that this is not normal for her and that her heart rate is usually 55-60 but at home it was up to 99. She denies having any chest pain, shortness of breath, headache, fever, pain with urination, change in her bowels. She states this is been going off and on for several months and she already had "extensive testing" done about a month or so ago in [place] but Dr. Mustafa has not been able to tell her what was causing her symptoms. Today when she felt her pulse was up to 99 she called the clinic and Dr. Mustafa had left for the day so the nurse told her to "get to the ER right away". She is very short and terse with her answers and seems upset that I am asking her questions. Allergies and Home Medications Allergies Coded Allergies: Penicillins (Verified Allergy, Unknown, 12/07/18) dimenhydrinate (Verified Allergy, Unknown, 12/07/18) Uncoded Allergies: silk sutures (Allergy, Unknown, 01/11/20) Home Medications Cephalexin 500 Mg Tablet, 500 MG PO BID Prescribed by: MJ ERICKSON on 12/08/18112 Esomeprazole Magnesium 20 Mg Capsule., 20 MG PO DAILY Prescribed by: GISELLA ZARATE on 02/02/192235 Omeprazole 40 Mg Capsule., 40 MG PO DAILY Prescribed by: MJ ERICKSON on 12/08/18112 Ondansetron 4 Mg Tab.rapdis, 4 MG PO Q6H PRN for NAUSEA/VOMITING-1ST LINE Prescribed by: MJ ERICKSON on 12/08/18112 Ondansetron 4 Mg Tab.rapdis, 4 MG PO Q6H PRN for NAUSEA/VOMITING Prescribed by: GISELLA ZARATE on 02/02/192236 Sucralfate 1 Gm Tablet, 1 GM PO QIDACHS Prescribed by: MJ ERICKSON on 12/08/18112 Sucralfate 1 Gm Tablet, 1 GM PO ACHS Prescribed by: GISELLA ZARATE on 02/02/192235 Patient Home Medication List Home Medication List Reviewed: Yes Review of Systems Review of Systems Constitutional: No chills, No dizziness, No fever EENTM: No vision loss Respiratory: No cough, No short of breath Cardiovascular: No chest pain; palpitations (reports her heart is going too fast for her); No syncope Gastrointestinal: No abdominal pain, No diarrhea, No nausea, No vomiting Genitourinary: No dysuria, No frequency Musculoskeletal: no symptoms reported Skin: No rash Psychiatric/Neurological: Denies Headache, Denies Numbness, Denies Paresthesia Past Khaykrh-Pkwwse-Jlypza Hx Past Med/Social Hx: Reviewed Nursing Past Med/Soc Hx Patient Social History 2nd Hand Smoke Exposure: No Recent Foreign Travel: No Contact w/Someone Who Travel: No Recent Hopitalizations: No Seasonal Allergies Seasonal Allergies: Yes Past Medical History Surgeries: Yes (MULTIPLE ORTHO ON BILATERAL LEGS) Appendectomy, Orthopedic Respiratory: No Cardiac: No Neurological: No Genitourinary: No (INCONTINENCE) Gastrointestinal: Yes Gastroesophageal Reflux, Hiatal Hernia Musculoskeletal: Yes (POLIO) Foot Drop Endocrine: No HEENT: No Cancer: No Psychosocial: No Integumentary: No Blood Disorders: No Physical Exam Vital Signs Vital Signs - First Documented 01/11/20 16:38 Temp 36.5 Pulse 84 Resp 20 B/P (MAP) 144/87 (106) Pulse Ox 95 O2 Delivery Room Air Capillary Refill : Height, Weight, BMI Height: 5'0" Weight: 138lbs. 0oz. 62.263347fd; BMI Method:Stated General Appearance: No Apparent Distress, WD/WN HEENT: PERRL/EOMI, Normal ENT Inspection, Pharynx Normal, Moist Mucous Membranes Neck: Full Range of Motion, Normal Inspection, Non Tender, Supple Respiratory: Chest Non Tender, Lungs Clear, Normal Breath Sounds, No Accessory Muscle Use, No Respiratory Distress Cardiovascular: Regular Rate, Rhythm, No Murmur, Normal Peripheral Pulses Gastrointestinal: Normal Bowel Sounds, No Pulsatile Mass, Non Tender, Soft Extremity: Other (deformity to both lower legs and is in wheelchair) Neurologic/Psychiatric: Alert, Oriented x3, No Motor/Sensory Deficits Skin: Normal Color, Warm/Dry Progress/Results/Core Measures Suspected Sepsis SIRS Temperature: Pulse: Respiratory Rate: Laboratory Tests 01/11/20 17:00: White Blood Count 8.0 Blood Pressure / Mean: Laboratory Tests 01/11/20 17:00: Creatinine 0.68, Platelet Count 214, Total Bilirubin 0.6 Results/Orders Lab Results Laboratory Tests Test 01/11/20 17:00 Range/Units White Blood Count 8.0 4.3-11.0 10^3/uL Red Blood Count 4.69 4.35-5.85 10^6/uL Hemoglobin 14.7 11.5-16.0 G/DL Hematocrit 44 35-52 % Mean Corpuscular Volume 94 80-99 FL Mean Corpuscular Hemoglobin 31 25-34 PG Mean Corpuscular Hemoglobin Concent 34 32-36 G/DL Red Cell Distribution Width 13.1 10.0-14.5 % Platelet Count 214 130-400 10^3/uL Mean Platelet Volume 11.5 H 7.4-10.4 FL Neutrophils (%) (Auto) 60 42-75 % Lymphocytes (%) (Auto) 28 12-44 % Monocytes (%) (Auto) 8 0-12 % Eosinophils (%) (Auto) 3 0-10 % Basophils (%) (Auto) 1 0-10 % Neutrophils # (Auto) 4.8 1.8-7.8 X 10^3 Lymphocytes # (Auto) 2.2 1.0-4.0 X 10^3 Monocytes # (Auto) 0.7 0.0-1.0 X 10^3 Eosinophils # (Auto) 0.3 0.0-0.3 10^3/uL Basophils # (Auto) 0.1 0.0-0.1 10^3/uL Sodium Level 144 135-145 MMOL/L Potassium Level 4.6 3.6-5.0 MMOL/L Chloride Level 108 H 98-107 MMOL/L Carbon Dioxide Level 24 21-32 MMOL/L Anion Gap 12 5-14 MMOL/L Blood Urea Nitrogen 26 H 7-18 MG/DL Creatinine 0.68 0.60-1.30 MG/DL Estimat Glomerular Filtration Rate > 60 BUN/Creatinine Ratio 38 Glucose Level 111 H 70-105 MG/DL Calcium Level 9.5 8.5-10.1 MG/DL Corrected Calcium 9.4 8.5-10.1 MG/DL Magnesium Level 2.0 1.6-2.4 MG/DL Total Bilirubin 0.6 0.1-1.0 MG/DL Aspartate Amino Transf (AST/SGOT) 27 5-34 U/L Alanine Aminotransferase (ALT/SGPT) 14 0-55 U/L Alkaline Phosphatase 66 40-136 U/L Troponin I < 0.30 <0.30 NG/ML Pro-B-Type Natriuretic Peptide 36.8 <75.0 PG/ML Total Protein 6.7 6.4-8.2 GM/DL Albumin 4.1 3.2-4.5 GM/DL My Orders Orders - REINALDO KHAN MD Cbc With Automated Diff (01/11/20 16:49) Magnesium (01/11/20 16:49) Chest 1 View Ap/Pa Only (01/11/20 16:49) Ekg Tracing (01/11/20 16:49) Comprehensive Metabolic Panel (01/11/20 16:49) Monitor-Rhythm Ecg Trace Only (01/11/20 16:49) Ed Iv/Invasive Line Start (01/11/20 16:49) Troponin I Fs (01/11/20 16:49) Probnp Fs (01/11/20 16:49) Ua Culture If Indicated (01/11/20 16:49) Ns Iv 500 Ml (Sodium Chloride 0.9%) (01/11/20 16:50) Vital Signs/I&O 01/11/20 01/11/20 16:38 18:20 Temp 36.5 37.1 Pulse 84 83 Resp 20 16 B/P (MAP) 144/87 (106) 138/75 Pulse Ox 95 97 O2 Delivery Room Air Room Air Capillary Refill : Progress Note #1: Progress Note Advised pt I would try to see if there were records from her visit to the ER at [place] to review for her "extensive testing" and will run some general tests I have access to here to see I can find any reason for her symptoms. Ordered labs, CXR and ECG. She did not feel she could give a urine sample because she had gone before leaving the house to come here. On review of the EMR for [facility] she had an Echocardiogram done October 27 and a Holter monitor from November 03. The echocardiogram did not show any acute significant abnormality. She had EF 55-65% with Grade 2 diastolic dysfunction, Mild aortic valve regurgitation, and pulmonary artery pressure 30-35 mm Hg. Her average heart rate on the holter monitor was in the 80s, despite the patient insisting that her heart rate always runs low between 55-60. She did have occasional PACs and PVCs on the Holter monitor and there was one short episode of ventricular bigeminy. Progress Note #2: Time: 17:54 Progress Note no acute abnormality on CXR. CBC no acute significant abnormality and no anemia. Chemistry shows elevated BUN so she might be a little dehydrated causing her symptoms. Given 500 mL NS bolus here. Will try to reassure pt and encourage her to drink plenty of fluids and to follow up with Dr. Mustafa for continued concerns ECG Initial ECG Impression Date: Jan 11, 2020 Initial ECG Impression Time: 17:16 Initial ECG Rate: 74 Initial ECG Rhythm: Normal Sinus Initial ECG Comparisson: No Previous ECG Available Comment Sinus rhythm with a heart rate 74 bpm. AL interval 178 ms. Lateral T-wave flattening. QT interval 385 ms with a QTc interval 428 ms. There is no prior EKG for comparison. Diagnostic Imaging Diagonstic Imaging: Xray Plain Films/CT/US/NM/MRI: chest Comments NAME: YAMILA SIMMONS [facility] REC#: [id number] PT STATUS: REG ER : 1955 PHYSICIAN: REINALDO KHAN MD ADMIT DATE: 01/11/20/ER FS Signed Date of Exam:01/11/20 CHEST 1 VIEW AP/PA ONLY INDICATION: Hypertension. FINDINGS: Portable chest shows normal heart size and vascularity. The lungs are clear. There is no effusion or pneumothorax. There is scoliosis. IMPRESSION: No acute abnormality is seen. Dictated by: Dictated on workstation # [id number] Dict: 01/11/201727 Trans: 01/11/201755 [id number] [id number] Interpreted by: JAYSON CRISOSTOMO MD Electronically signed by: JAYSON CRISOSTOMO MD 01/11/201755 Departure Impression Primary Impression: Mild dehydration Additional Impression: Heart palpitations Disposition: 01 HOME, SELF-CARE Condition: Stable Departure-Patient Inst. Decision time for Depature: 18:01 Referrals: RICK MUSTAFA MD (PCP) Primary Care Physician Patient Instructions: Dehydration, Adult (DC), Palpitations (DC) Add. Discharge Instructions: Drink more water and stay well hydrated. Check back with Dr. Mustafa for further concerns REINALDO KHAN MD Jan 11, 2020 16:57
[2020-01-11 17:19] LABS: BASOPHILS % (AUTO) 1 % (0-10); EOSINOPHILS % (AUTO) 3 % (0-10); HEMATOCRIT 44 % (35-52); HEMOGLOBIN 14.7 G/DL (11.5-16.0); LYMPHOCYTES % (AUTO) 28 % (12-44); MEAN CORPUSCULAR HEMOGLOBIN 31 PG (25-34); MEAN CORPUSCULAR HGB CONC 34 G/DL (32-36); MEAN CORPUSCULAR VOLUME 94 FL (80-99); MEAN PLATELET VOLUME 11.5 FL (7.4-10.4); MONOCYTES % (AUTO) 8 % (0-12); NEUTROPHILS % (AUTO) 60 % (42-75); PLATELET COUNT 214 10^3/uL (130-400); RED CELL DISTRIBUTION WIDTH 13.1 % (10.0-14.5)
[2020-01-11 17:20] LABS: BASOPHILS # (AUTO) 0.1 10^3/uL (0.0-0.1); EOSINOPHILS # (AUTO) 0.3 10^3/uL (0.0-0.3); LYMPHOCYTES # (AUTO) 2.2 X 10^3 (1.0-4.0); MONOCYTES # (AUTO) 0.7 X 10^3 (0.0-1.0); NEUTROPHILS # (AUTO) 4.8 X 10^3 (1.8-7.8)
--- NOTE | 2020-01-11 17:34 | Diagnostic Imaging Report ---
INDICATION: Hypertension. FINDINGS: Portable chest shows normal heart size and vascularity. The lungs are clear. There is no effusion or pneumothorax. There is scoliosis. IMPRESSION: No acute abnormality is seen. Dictated by: Dictated on workstation # [id number]
[2020-01-11 17:36] LABS: BUN/CREATININE RATIO 38; CARBON DIOXIDE 24 MMOL/L (21-32); CHLORIDE 108 MMOL/L (98-107); CREATININE SERUM 0.68 MG/DL (0.60-1.30); GFR ESTIMATED > 60; POTASSIUM 4.6 MMOL/L (3.6-5.0); SODIUM 144 MMOL/L (135-145)
[2020-01-11 17:37] LABS: ALANINE AMINOTRANSFERASE 14 U/L (0-55); ALBUMIN 4.1 GM/DL (3.2-4.5); ALKALINE PHOSPHATASE 66 U/L (40-136); BILIRUBIN,TOTAL 0.6 MG/DL (0.1-1.0); CALCIUM 9.5 MG/DL (8.5-10.1); GLUCOSE 111 MG/DL (70-105); TOTAL PROTEIN 6.7 GM/DL (6.4-8.2)
[2020-01-11 18:20] VITALS: BP 138/75
--- OUTSIDE RECORDS SUMMARY | 2020-01-11 20:18 | XMS REPORT | Continuity of Care Document ---
Author Organization Unknown Address Unknown Phone Unavailable Allergies Active Description Code Type Severity Reaction Onset Reported/Identified Relationship to Patient Clinical Status Yes dimenhydrinate [id number] Dr springer Allergy Unknown N/A 12/07/2018 Yes No Known Drug Allergies [id number] Drug Allergy Unknown N/A 12/07/2018 Yes Penicillins [id number] Drug Aller gy Unknown N/A 12/07/2018 Yes silk sutures silk sutures Unknown N/A 01/11/2020 Medications There is no data. Problems Date Dx Coded Attending Type Code Diagnosis Diagnosed By 12/08/2018 MJ ERICKSON MD Ot K21. 9 GASTRO-ESOPHAGEAL REFLUX DISEASE WITHOUT 12/08/2018 MJ ERICKSON MD Ot K29. 70 GASTRITIS, UNSPECIFIED, WITHOUT BLEEDING 12/08/2018 MJ ERICKSON MD Ot N39. 0 URINARY TRACT INFECTION, SITE NOT SPECIF 12/08/2018 MJ ERICKSON MD Ot R10. 12 LEFT UPPER QUADRANT PAIN 12/08/2018 MJ ERICKSON MD Ot Z87. 19 PERSONAL HISTORY OF OTHER DISEASES OF 12/08/2018 MJ ERICKSON MD Ot Z88. 0 ALLERGY STATUS TO PENICILLIN 12/08/2018 MJ ERICKSON MD Ot Z88. 8 ALLERGY STATUS TO OTH DRUG/MEDS/BIOL SUB 12/09/2018 MJ ERICKSON MD Ot K21. 9 GASTRO-ESOPHAGEAL REFLUX DISEASE WITHOUT 12/09/2018 MJ ERICKSON MD Ot K29. 70 GASTRITIS, UNSPECIFIED, WITHOUT BLEEDING 12/09/2018 MJ ERICKSON MD Ot N39. 0 URINARY TRACT INFECTION, SITE NOT SPECIF 12/09/2018 MJ ERICKSON MD Ot R10. 12 LEFT UPPER QUADRANT PAIN 12/09/2018 MJ ERICKSON MD Ot Z87. 19 PERSONAL HISTORY OF OTHER DISEASES OF 12/09/2018 MJ ERICKSON MD Ot Z88. 0 ALLERGY STATUS TO PENICILLIN 12/09/2018 MJ ERICKSON MD, Ot Z88. 8 ALLERGY STATUS TO OTH DRUG/MEDS/BIOL SUB 12/13/2018 MJ ERICKSON MD Ot K21. 9 GASTRO-ESOPHAGEAL REFLUX DISEASE WITHOUT 12/13/2018 MJ ERICKSON MD Ot K29. 70 GASTRITIS, UNSPECIFIED, WITHOUT BLEEDING 12/13/2018 MJ ERICKSON MD Ot N39. 0 URINARY TRACT INFECTION, SITE NOT SPECIF 12/13/2018 MJ ERICKSON MD Ot R10. 12 LEFT UPPER QUADRANT PAIN 12/13/2018 MJ ERICKSON MD Ot Z87. 19 PERSONAL HISTORY OF OTHER DISEASES OF 12/13/2018 MJ ERICKSON MD Ot Z88. 0 ALLERGY STATUS TO PENICILLIN 12/13/2018 MJ ERICKSON MD, Ot Z88. 8 ALLERGY STATUS TO OTH DRUG/MEDS/BIOL SUB 02/02/2019 GISELLA ZARATE DO, Ot K21.9 GASTRO-ESOPHAGEAL REFLUX DISEASE WITHOUT 02/02/2019 GISELLA ZARATE DO Ot K44.9 DIAPHRAGMATIC HERNIA WITHOUT OBSTRUCTION 02/02/2019 GISELLA ZARATE DO Ot K51.30 ULCERATIVE (CHRONIC) RECTOSIGMOIDITIS [place] 02/02/2019 GISELLA ZARATE DO Ot R10.12 LEFT UPPER QUADRANT PAIN 02/02/2019 GISELLA ZARATE DO Ot Z86.12 PERSONAL HISTORY OF POLIOMYELITIS 02/02/2019 GISELLA ZARATE DO Ot Z88.0 ALLERGY STATUS TO PENICILLIN 02/02/2019 GISELLA ZARATE DO Ot Z88.8 ALLERGY STATUS TO OTH DRUG/MEDS/BIOL SUB 02/02/2019 GISELLA ZARATE DO Ot Z90.49 ACQUIRED ABSENCE OF OTHER SPECIFIED PART 02/04/2019 GISELLA ZARATE DO Ot K21.9 GASTRO-ESOPHAGEAL REFLUX DISEASE WITHOUT 02/04/2019 GISELLA ZARATE DO Ot K44.9 DIAPHRAGMATIC HERNIA WITHOUT OBSTRUCTION 02/04/2019 GISELLA ZARATE DO Ot K51.30 ULCERATIVE (CHRONIC) RECTOSIGMOIDITIS [place] 02/04/2019 GISELLA ZARATE DO Ot R10.12 LEFT UPPER QUADRANT PAIN 02/04/2019 GISELLA ZARATE DO Ot Z86.12 PERSONAL HISTORY OF POLIOMYELITIS 02/04/2019 GISELLA ZARATE DO Ot Z88.0 ALLERGY STATUS TO PENICILLIN 02/04/2019 GISELLA ZARATE DO Ot Z88.8 ALLERGY STATUS TO OTH DRUG/MEDS/BIOL SUB 02/04/2019 GISELLA ZARATE DO Eunice Ot Z90.49 ACQUIRED ABSENCE OF OTHER SPECIFIED PART 10/25/2019 LEILA, DEIDRE [employer] WE[employer] DESIGNER Ot R00.2 PALPITATIONS 10/25/2019 LEILA, DEIDRE [employer] WE[employer] DESIGNER Ot R29.89 8 OTH SYMPTOMS AND SIGNS INVOLVING THE MUS 10/25/2019 LEILA, DEIDRE [employer] WE[employer] DES[employer]ER Ot R00.2 PALPITATIONS 10/27/2019 LEILA, DEIDRE [employer] WE[employer] DESIGNER Ot R00.2 PALPITATIONS 10/28/2019 LEILA, DEIDRE [employer] WE[employer] DES[employer]ER Ot R00.2 PALPITATIONS 10/30/2019 LEILA, DEIDRE [employer] WE[employer] DESIGNER Ot I35.0 NONRHEUMATIC AORTIC (VALVE) STENOSIS 10/30/2019 LEILA, DEIDRE [employer] WE[employer] DES[employer]ER Ot R00.2 PALPITATIONS 10/30/2019 LEILA, DEIDRE [employer] WE[employer] DESIGNER Ot R29.89 8 OTH SYMPTOMS AND SIGNS INVOLVING THE MUS 11/02/2019 LEILA, DEIDRE [employer] WE[employer] DESIGNER Ot I35.0 NONRHEUMATIC AORTIC (VALVE) STENOSIS 11/02/2019 LEILA, DEIDRE [employer] WE[employer] DESIGNER Ot R00.2 PALPITATIONS 11/02/2019 LEILA, DEIDRE [employer] WE[employer] DESIGNER Ot R29.89 8 OTH SYMPTOMS AND SIGNS INVOLVING THE MUS 11/18/2019 LEILA, DEIDRE [employer] WE[employer] DESIGNER Ot I35.0 NONRHEUMATIC AORTIC (VALVE) STENOSIS 11/18/2019 LEILA, DEIDRE [employer] WE[employer] DES[employer]ER Ot R00.2 PALPITATIONS 11/18/2019 LEILA, DEIDRE [employer] WE[employer] DESIGNER Ot R29.89 8 OTH SYMPTOMS AND SIGNS INVOLVING THE MUS Procedures There is no data. Results Test Result Range Complete blood count (CBC) with automate d white blood cell (WBC) differential - 12/07/18 22:05 Blood leukocytes automated count (number/volume) 15.6 10*3/uL 4.3-11.0 Blood erythrocytes automated count (number/volume) 4.86 10*6/uL 4.35-5.85 Venous blood hemoglobin measurement (mass/volume) 15.2 g/dL 11.5-16.0 Blood hematocrit (volume fraction) 45 % 35-52 Automated erythrocyte mean corpuscular volume 93 [ foz_us] 80-99 Automated erythrocyte mean corpuscular h emoglobin (mass per erythrocyte) 31 pg 25-34 Automated erythrocyte mean corpuscular h emoglobin concentration measurement (mass/volume) 34 g/dL 32-36 Automated erythrocyte distribution width ratio 13. 2 % 10.0- 14.5 Automated blood platelet count [...] 10*3 1.0-4.0 Blood monocytes automated count (number/volume) 0. 7 10*3 0.0-1.0 Automated eosinophil count 0.1 10*3/uL 0 .0-0.3 Automated blood basophil count (count/volume) 0.1 10*3/uL 0.0-0.1 Comprehensive metabolic panel - 12/07/18 22:05 Serum or plasma sodium measurement (moles/volume) 143 mmol/L 135-145 Serum or plasma potassium measurement (moles/volume) 4.2 mmol/L 3.6-5.0 Serum or plasma chloride measurement (moles/volume) 103 mmol/L 98-107 Carbon dioxide 22 mmol/L 21-32 Serum or plasma anion gap determination (moles/volume) 18 mmol/L 5-14 Serum or plasma urea nitrogen measurement (mass/volume ) 21 mg/dL 7-18 Serum or plasma creatinine measurement (mass/volume) 0.79 mg/dL 0.60-1.30 Serum or plasma urea nitrogen/creatinine mass ratio 27 NRG Serum or plasma creatinine measurement w ith calculation of estimated glomerular filtration rate > NRG Serum or plasma glucose measurement (mass/volume) 133 mg/dL 70-105 Serum or plasma calcium measurement (mass/volume) 9.2 mg/dL 8.5-10.1 Serum or plasma total bilirubin measurement (mass/volu me) 1.2 mg/dL 0.1-1.0 Serum or plasma alkaline phosphatase yaneth surement (enzymatic activity/volume) 49 U/L 40-136 Serum or plasma aspartate aminotransfera se measurement (enzymatic activity/volume) 18 U/L 5-34 Serum or plasma alanine aminotransferase measurement (enzymatic activity/volume) 12 U/L 0-55 Serum or plasma protein measurement (mass/volume) 7.2 g/dL 6.4-8.2 Serum or plasma albumin measurement (mass/volume) 4.6 g/dL 3.2-4.5 Lipase - 12/07/18 22:05 Lipase 26 U/L 8-78 Blood manual differential performed dete ction - 12/07/18 22:05 Blood monocytes/100 leukocytes 2 % NRG Manual blood segmented neutrophils/100 leukocytes 72 % NRG Blood band neutrophils/100 leukocytes 16 % NRG Manual blood lymphocytes/100 leukocytes 8 % NRG Manual eosinophils/100 leukocytes in nose 2 % NRG Manual blood basophils/100 leukocytes 0 % NRG Blood erythrocyte morphology finding identification NORMAL NRG Complete urinalysis with reflex to cultu re - 12/07/18 22:19 Urine color determination YELLOW NRG Urine clarity determination CLOUDY NR G Urine pH measurement by test strip 8.0 5-9 Specific gravity of urine by test strip 1.010 1.016-1.022 Urine protein assay by test strip, semi-quantitative 1+ NEGATIVE Urine glucose detection by automated test strip NE GATIVE NEGATIVE Erythrocytes detection in urine sediment by light micr oscopy 1+ NEGATIVE Urine ketones detection by automated test strip TR SOL NEGATIVE Urine nitrite detection by test strip POSITIVE NEGATIVE Urine total bilirubin detection by test strip NEGA TIVE NEGATIVE Urine urobilinogen measurement by automated test strip (mass/volume) 0.2 mg/dL NORMAL Urine leukocyte esterase detection by dipstick 3+ NEGATIVE Automated urine sediment erythrocyte cou nt by microscopy (number/high power field) [HPF] NRG Automated urine sediment leukocyte count by microscopy (number/high power field) [HPF] NRG Bacteria detection in urine sediment by light microsco py LARGE NRG Squamous epithelial cells detection in u rine sediment by light microscopy 5-10 NRG Crystals detection in urine sediment by light microsco py PRESENT NRG Casts detection in urine sediment by light microscopy NONE NRG Mucus detection in urine sediment by light microscopy NEGATIVE NRG Complete urinalysis with reflex to culture YES NRG Triple phosphate crystals detection in u rine sediment by light microscopy LARGE NRG Bacterial urine culture - 12/07/18 22:19 Bacterial urine culture [id number] NRG COLONY COUNT >100,000/ML NR FTX;REPORTABLE SUSCEPTIBILITY REPORTED 12-10-180 6 [facility] Sensitivity Panel - 12/07/18 22:19 Gentamicin susceptibility test by minimum inhibitory c oncentration <= NRG Trimethoprim/sulfamethoxazole susceptibi lity test by minimum inhibitoryconcentration S NRG Levofloxacin susceptibility test by minimum inhibitory concentration <= NRG Ampicillin susceptibility test by minimum inhibitory c oncentration R NRG Cefazolin susceptibility test by minimum inhibitory co ncentration R NRG Ceftriaxone susceptibility test by minimum inhibitory concentration <= NRG Ciprofloxacin susceptibility test by minimum inhibitor y concentration <= NRG Meropenem susceptibility test by minimum inhibitory co ncentration <= NRG Nitrofurantoin susceptibility test by mi nimum inhibitory concentration > NRG Amoxicillin and clavulanate potassium susc ADELINA <= NRG Complete blood count (CBC) with automate d white blood cell (WBC) differential - 02/02/19 20:15 Blood leukocytes automated count (number/volume) 6.9 10*3/uL 4.3-11.0 Blood erythrocytes automated count (number/volume) 4.62 10*6/uL 4.35-5.85 Venous blood hemoglobin measurement (mass/volume) 14.1 g/dL 11.5-16.0 Blood hematocrit (volume fraction) 43 % 35-52 Automated erythrocyte mean corpuscular volume 93 [ foz_us] 80-99 Automated erythrocyte mean corpuscular h emoglobin (mass per erythrocyte) 31 pg 25-34 Automated erythrocyte mean corpuscular h emoglobin concentration measurement (mass/volume) 33 g/dL 32-36 Automated erythrocyte distribution width ratio 13. 2 % 10.0- 14.5 Automated blood platelet count (count/volume) 233 10*3/uL 130-400 Automated blood platelet mean volume measurement 10.9 [foz_us] 7.4-10.4 Automated blood neutrophils/100 leukocytes 60 % 42-75 Automated blood lymphocytes/100 leukocytes 29 % 12-44 Blood monocytes/100 leukocytes 8 % 0-12 Automated blood eosinophils/100 leukocytes 3 % 0-10 Automated blood basophils/100 leukocytes 1 % 0-10 Blood neutrophils automated count (number/volume) 4.1 10*3 1.8-7.8 Blood lymphocytes automated count (number/volume) 2.0 10*3 1.0-4.0 Blood monocytes automated count (number/volume) 0. 6 10*3 0.0-1.0 Automated eosinophil count 0.2 10*3/uL 0 .0-0.3 Automated blood basophil count (count/volume) 0.1 10*3/uL 0.0-0.1 Comprehensive metabolic panel - 02/02/19 20:15 Serum or plasma sodium measurement (moles/volume) 144 mmol/L 135-145 Serum or plasma potassium measurement (moles/volume) 3.6 mmol/L 3.6-5.0 Serum or plasma chloride measurement (moles/volume) 104 mmol/L 98-107 Carbon dioxide 26 mmol/L 21-32 Serum or plasma anion gap determination (moles/volume) 14 mmol/L 5-14 Serum or plasma urea nitrogen measurement (mass/volume ) 22 mg/dL 7-18 Serum or plasma creatinine measurement (mass/volume) 0.81 mg/dL 0.60-1.30 Serum or plasma urea nitrogen/creatinine mass ratio 27 NRG Serum or plasma creatinine measurement w ith calculation of estimated glomerular filtration rate > NRG Serum or plasma glucose measurement (mass/volume) 101 mg/dL 70-105 Serum or plasma calcium measurement (mass/volume) 9.8 mg/dL 8.5-10.1 Serum or plasma total bilirubin measurement (mass/volu me) 1.2 mg/dL 0.1-1.0 Serum or plasma alkaline phosphatase yaneth surement (enzymatic activity/volume) 58 U/L 40-136 Serum or plasma aspartate aminotransfera se measurement (enzymatic activity/volume) 17 U/L 5-34 Serum or plasma alanine aminotransferase measurement (enzymatic activity/volume) 12 U/L 0-55 Serum or plasma protein measurement (mass/volume) 6.9 g/dL 6.4-8.2 Serum or plasma albumin measurement (mass/volume) 4.5 g/dL 3.2-4.5 CALCIUM CORRECTED 9.4 mg/dL 8.5-10.1 Lipase - 02/02/19 20:15 Lipase 41 U/L 8-78 Complete urinalysis with reflex to cultu re - 02/02/19 22:00 Urine color determination YELLOW NRG Urine clarity determination CLEAR NR G Urine pH measurement by test strip 7.0 5-9 Specific gravity of urine by test strip < 1.016-1.022 Urine protein assay by test strip, semi-quantitative NEGATIVE NEGATIVE Urine glucose detection by automated test strip NE GATIVE NEGATIVE Erythrocytes detection in urine sediment by light micr oscopy NEGATIVE NEGATIVE Urine ketones detection by automated test strip NE GATIVE NEGATIVE Urine nitrite detection by test strip NEGATIVE NEGATIVE Urine total bilirubin detection by test strip NEGA TIVE NEGATIVE Urine urobilinogen measurement by automated test strip (mass/volume) 0.2 mg/dL NORMAL Urine leukocyte esterase detection by dipstick NEG ATIVE NEGATIVE Automated urine sediment erythrocyte cou nt by microscopy (number/high power field) NONE NRG Automated urine sediment leukocyte count by microscopy (number/high power field) NONE NRG Bacteria detection in urine sediment by light microsco py NONE NRG Squamous epithelial cells detection in u rine sediment by light microscopy 5-10 NRG Crystals detection in urine sediment by light microsco py NONE NRG Casts detection in urine sediment by light microscopy NONE NRG Mucus detection in urine sediment by light microscopy NEGATIVE NRG Complete urinalysis with reflex to culture NO NRG Comprehensive metabolic panel - 10/28/19 09:36 Serum or plasma sodium measurement (moles/volume) 146 mmol/L 135-145 Serum or plasma potassium measurement (moles/volume) 3.9 mmol/L 3.6-5.0 Serum or plasma chloride measurement (moles/volume) 109 mmol/L 98-107 Carbon dioxide 27 mmol/L 21-32 Serum or plasma anion gap determination (moles/volume) 10 mmol/L 5-14 Serum or plasma urea nitrogen measurement (mass/volume ) 19 mg/dL 7-18 Serum or plasma creatinine measurement (mass/volume) 0.77 mg/dL 0.60-1.30 Serum or plasma urea nitrogen/creatinine mass ratio 25 NRG Serum or plasma creatinine measurement w ith calculation of estimated glomerular filtration rate > NRG Serum or plasma glucose measurement (mass/volume) 94 mg/dL 70-105 Serum or plasma calcium measurement (mass/volume) 9.6 mg/dL 8.5-10.1 Serum or plasma total bilirubin measurement (mass/volu me) 1.1 mg/dL 0.1-1.0 Serum or plasma alkaline phosphatase yaneth surement (enzymatic activity/volume) 58 U/L 40-136 Serum or plasma aspartate aminotransfera se measurement (enzymatic activity/volume) 18 U/L 5-34 Serum or plasma alanine aminotransferase measurement (enzymatic activity/volume) 14 U/L 0-55 Serum or plasma protein measurement (mass/volume) 6.7 g/dL 6.4-8.2 Serum or plasma albumin measurement (mass/volume) 4.4 g/dL 3.2-4.5 CALCIUM CORRECTED 9.3 mg/dL 8.5-10.1 Complete blood count (CBC) with automate d white blood cell (WBC) differential - 01/11/20 17:00 Blood leukocytes automated count (number/volume) 8.0 10*3/uL 4.3-11.0 Blood erythrocytes automated count (number/volume) 4.69 10*6/uL 4.35-5.85 Venous blood hemoglobin measurement (mass/volume) 14.7 g/dL 11.5-16.0 Blood hematocrit (volume fraction) 44 % 35-52 Automated erythrocyte mean corpuscular volume 94 [ foz_us] 80-99 Automated erythrocyte mean corpuscular h emoglobin (mass per erythrocyte) 31 pg 25-34 Automated erythrocyte mean corpuscular h emoglobin concentration measurement (mass/volume) 34 g/dL 32-36 Automated erythrocyte distribution width ratio 13. 1 % 10.0- 14.5 Automated blood platelet count (count/volume) 214 10*3/uL 130-400 Automated blood platelet mean volume measurement 11.5 [foz_us] 7.4-10.4 Automated blood neutrophils/100 leukocytes 60 % 42-75 Automated blood lymphocytes/100 leukocytes 28 % 12-44 Blood monocytes/100 leukocytes 8 % 0-12 Automated blood eosinophils/100 leukocytes 3 % 0-10 Automated blood basophils/100 leukocytes 1 % 0-10 Blood neutrophils automated count (number/volume) 4.8 10*3 1.8-7.8 Blood lymphocytes automated count (number/volume) 2.2 10*3 1.0-4.0 Blood monocytes automated count (number/volume) 0. 7 10*3 0.0-1.0 Automated eosinophil count 0.3 10*3/uL 0 .0-0.3 Automated blood basophil count (count/volume) 0.1 10*3/uL 0.0-0.1 Comprehensive metabolic panel - 01/11/20 17:00 Serum or plasma sodium measurement (moles/volume) 144 mmol/L 135-145 Serum or plasma potassium measurement (moles/volume) 4.6 mmol/L 3.6-5.0 Serum or plasma chloride measurement (moles/volume) 108 mmol/L 98-107 Carbon dioxide 24 mmol/L 21-32 Serum or plasma anion gap determination (moles/volume) 12 mmol/L 5-14 Serum or plasma urea nitrogen measurement (mass/volume ) 26 mg/dL 7-18 Serum or plasma creatinine measurement (mass/volume) 0.68 mg/dL 0.60-1.30 Serum or plasma urea nitrogen/creatinine mass ratio 38 NRG Serum or plasma creatinine measurement w ith calculation of estimated glomerular filtration rate > NRG Serum or plasma glucose measurement (mass/volume) 111 mg/dL 70-105 Serum or plasma calcium measurement (mass/volume) 9.5 mg/dL 8.5-10.1 Serum or plasma total bilirubin measurement (mass/volu me) 0.6 mg/dL 0.1-1.0 Serum or plasma alkaline phosphatase yaneth surement (enzymatic activity/volume) 66 U/L 40-136 Serum or plasma aspartate aminotransfera se measurement (enzymatic activity/volume) 27 U/L 5-34 Serum or plasma alanine aminotransferase measurement (enzymatic activity/volume) 14 U/L 0-55 Serum or plasma protein measurement (mass/volume) 6.7 g/dL 6.4-8.2 Serum or plasma albumin measurement (mass/volume) 4.1 g/dL 3.2-4.5 CALCIUM CORRECTED 9.4 mg/dL 8.5-10.1 Magnesium - 01/11/20 17:00 Magnesium 2.0 mg/dL 1.6-2.4 TROPONIN I FS - 01/11/20 17:00 TROPONIN I FS < 0.30 <0.30 PROBNP FS - 01/11/20 17:00 PROBNP FS 36.8 pg/mL <75.0 Encounters ACCT No. Visit Date/Time Discharge Status Pt. Type Provider Facility Loc./Unit Complaint [id number] 01/11/2020 16:35:00 020 18:20:00 DIS Emergency REINALDO KHAN MD [facility] ER FS HIGH BLOOD PRESSURE [id number] 10/28/2019 09:18:00 020 23:59:59 CLS Outpatient DEIDRE DEE [facility] CARD PALPITATIONS. [id number] 02/02/2019 19:46:00 019 22:45:00 DIS Emergency GISELLA ZARATE DO [facility] ER FS PAIN IN LT SIDE ABD [id number] 12/07/2018 21:39:00 019 01:23:00 DIS Emergency DRE JARRELL, MJ [place] [facility] ER FS LT SIDE ABD PAIN
== END 2020-01-11 18:20 | disposition home or self-care (01) ==
LOC: EDUNIT# 16:34 → ER FS 16:35
DX: E86.0 Dehydration (principal); K21.9 Gastro-esophageal reflux disease without esophagitis; Z88.0 Allergy status to penicillin; Z88.8 Allergy status to other drugs, medicaments and biological substances
CPT/HCPCS: 36415; 71045; 80053; 83735; 83880; 84484; 85025; 93005; 93041

== ENCOUNTER → 2020-12-06 | Outpatient (CLI) | payer MEDICARE ==
[2020-12-06 17:06] LABS: BASOPHILS # (AUTO) 0.1 10^3/uL (0.0-0.1); BASOPHILS % (AUTO) 1 % (0-10); EOSINOPHILS # (AUTO) 0.3 10^3/uL (0.0-0.3); EOSINOPHILS % (AUTO) 4 % (0-10); HEMATOCRIT 37 % (35-52); HEMOGLOBIN 11.3 g/dL (11.5-16.0); LYMPHOCYTES # (AUTO) 2.2 10^3/uL (1.0-4.0); LYMPHOCYTES % (AUTO) 26 % (12-44); MEAN CORPUSCULAR HEMOGLOBIN 28 pg (25-34); MEAN CORPUSCULAR HGB CONC 31 g/dL (32-36); MEAN CORPUSCULAR VOLUME 90 fL (80-99); MEAN PLATELET VOLUME 9.6 fL (9.0-12.2); MONOCYTES # (AUTO) 0.6 10^3/uL (0.0-1.0); MONOCYTES % (AUTO) 7 % (0-12); NEUTROPHILS # (AUTO) 5.3 10^3/uL (1.8-7.8); NEUTROPHILS % (AUTO) 62 % (42-75); PLATELET COUNT 448 10^3/uL (130-400); WHITE BLOOD COUNT 8.6 10^3/uL (4.3-11.0)
[2020-12-06 17:21] LABS: ALBUMIN 3.7 GM/DL (3.2-4.5); CHLORIDE 109 MMOL/L (98-107); POTASSIUM 4.2 MMOL/L (3.6-5.0); SODIUM 145 MMOL/L (135-145)
[2020-12-06 17:23] LABS: CALCIUM 9.3 MG/DL (8.5-10.1); GLUCOSE 92 MG/DL (70-105); TOTAL PROTEIN 6.8 GM/DL (6.4-8.2)
[2020-12-06 17:24] LABS: CARBON DIOXIDE 25 MMOL/L (21-32)
[2020-12-06 17:25] LABS: BILIRUBIN,TOTAL 0.5 MG/DL (0.1-1.0)
[2020-12-06 17:27] LABS: ALKALINE PHOSPHATASE 62 U/L (40-136); CREATININE SERUM 0.69 MG/DL (0.60-1.30); GFR ESTIMATED > 60
[2020-12-06 17:28] LABS: BUN/CREATININE RATIO 33
[2020-12-06 17:30] LABS: ALANINE AMINOTRANSFERASE 17 U/L (0-55)
== END ==
LOC: LAB 16:37
PROVIDERS: ATTEND Surgery
DX: L97.412 Non-pressure chronic ulcer of right heel and midfoot with fat layer exposed (principal)
CPT/HCPCS: 36415; 80053; 85025

== ENCOUNTER → 2020-12-06 | Outpatient (CLI) | payer MEDICARE | LOC: WOUNDCARE 13:49 | PROVIDERS: ATTEND Surgery | DX: I70.234 Atherosclerosis of native arteries of right leg with ulceration of heel and midfoot (principal); L97.212 Non-pressure chronic ulcer of right calf with fat layer exposed; L97.412 Non-pressure chronic ulcer of right heel and midfoot with fat layer exposed; I89.0 Lymphedema, not elsewhere classified; B91 Sequelae of poliomyelitis | CPT/HCPCS: 11042; A6260; G0463 ==

== ENCOUNTER → 2020-12-21 | Outpatient (CLI) | payer MEDICARE | LOC: WOUNDCARE 09:24 | PROVIDERS: ATTEND Surgery | DX: I89.0 Lymphedema, not elsewhere classified (principal); I96 Gangrene, not elsewhere classified; L97.412 Non-pressure chronic ulcer of right heel and midfoot with fat layer exposed; L97.212 Non-pressure chronic ulcer of right calf with fat layer exposed; B91 Sequelae of poliomyelitis | CPT/HCPCS: 11042; A4649; G0463 ==

== ENCOUNTER → 2020-12-28 | Outpatient (CLI) | payer MEDICARE | LOC: WOUNDCARE 08:11 | PROVIDERS: ATTEND Surgery | DX: I89.0 Lymphedema, not elsewhere classified (principal); L97.413 Non-pressure chronic ulcer of right heel and midfoot with necrosis of muscle; G82.21 Paraplegia, complete; B91 Sequelae of poliomyelitis; I96 Gangrene, not elsewhere classified | CPT/HCPCS: 11043; G0463 ==

== ENCOUNTER → 2021-01-12 | Outpatient (CLI) | payer MEDICARE | LOC: WOUNDCARE 09:16 | PROVIDERS: ATTEND Orthopaedic Surgery Hand Surgery | DX: I89.0 Lymphedema, not elsewhere classified (principal); I96 Gangrene, not elsewhere classified; L97.413 Non-pressure chronic ulcer of right heel and midfoot with necrosis of muscle; G82.21 Paraplegia, complete; B91 Sequelae of poliomyelitis | CPT/HCPCS: 11042; G0463 ==

== ENCOUNTER → 2021-01-12 | Outpatient (CLI) | payer MEDICARE ==
--- NOTE | 2021-01-12 11:48 | Diagnostic Imaging Report ---
INDICATION: RT HEEL ULCER WITH NECROSIS OF MIDFOOT. TECHNIQUE: 3 views of the right foot CORRELATION STUDY: None FINDINGS: Lateral view in particular suboptimal reverse positioning. The osseous structures overall appear to be in normal alignment. No definitive acute bony abnormality. No margaret bony erosive or destructive change. Some generalized demineralization. Prominent diffuse soft tissue edema. No definitive foreign body. IMPRESSION: 1. Suboptimal examination right foot. Generalized bony demineralization. Acute bony abnormality or margaret bony erosion is not suggested. Further assessment desired for potential underlying osteomyelitis, MRI would be recommended. Dictated by: Dictated on workstation # [id number]
== END ==
LOC: RAD 10:47
PROVIDERS: ATTEND Orthopaedic Surgery Hand Surgery
DX: L97.413 Non-pressure chronic ulcer of right heel and midfoot with necrosis of muscle (principal)
CPT/HCPCS: 73630

== ENCOUNTER → 2021-01-18 | Outpatient (CLI) | payer MEDICARE | LOC: WOUNDCARE 08:17 | PROVIDERS: ATTEND Surgery | DX: I89.0 Lymphedema, not elsewhere classified (principal); I96 Gangrene, not elsewhere classified; L97.413 Non-pressure chronic ulcer of right heel and midfoot with necrosis of muscle; G82.21 Paraplegia, complete; B91 Sequelae of poliomyelitis | CPT/HCPCS: 11043; G0463 ==

== ENCOUNTER → 2021-01-25 | Outpatient (CLI) | payer MEDICARE ==
[~2021-01-25] MED LIST changes: -OMEP40CA27 PO; +OMEP40CA6 PO
== END ==
LOC: WOUNDCARE 08:18
PROVIDERS: ATTEND Surgery
DX: I96 Gangrene, not elsewhere classified (principal); I89.0 Lymphedema, not elsewhere classified; L97.413 Non-pressure chronic ulcer of right heel and midfoot with necrosis of muscle; G82.21 Paraplegia, complete; B91 Sequelae of poliomyelitis
CPT/HCPCS: 11043; G0463

== ENCOUNTER → 2021-02-08 | Outpatient (CLI) | payer MEDICARE | LOC: WOUNDCARE 08:23 | PROVIDERS: ATTEND Surgery | DX: I89.0 Lymphedema, not elsewhere classified (principal); L97.413 Non-pressure chronic ulcer of right heel and midfoot with necrosis of muscle; G82.21 Paraplegia, complete; B91 Sequelae of poliomyelitis; I96 Gangrene, not elsewhere classified | CPT/HCPCS: 11043; G0463 ==

== ENCOUNTER → 2021-02-16 | Outpatient (CLI) | payer MEDICARE | LOC: WOUNDCARE 08:23 | PROVIDERS: ATTEND Surgery | DX: I89.0 Lymphedema, not elsewhere classified (principal); L97.412 Non-pressure chronic ulcer of right heel and midfoot with fat layer exposed; G82.21 Paraplegia, complete; B91 Sequelae of poliomyelitis; I96 Gangrene, not elsewhere classified | CPT/HCPCS: 11042; A6197; G0463 ==

== ENCOUNTER → 2021-02-22 | Outpatient (CLI) | payer MEDICARE | LOC: WOUNDCARE 08:20 | PROVIDERS: ATTEND Surgery | DX: I89.0 Lymphedema, not elsewhere classified (principal); I96 Gangrene, not elsewhere classified; L97.412 Non-pressure chronic ulcer of right heel and midfoot with fat layer exposed; G82.21 Paraplegia, complete; B91 Sequelae of poliomyelitis | CPT/HCPCS: 11042; G0463 ==

== ENCOUNTER → 2021-03-01 | Outpatient (CLI) | payer MEDICARE | LOC: WOUNDCARE 08:12 | PROVIDERS: ATTEND Surgery | DX: I89.0 Lymphedema, not elsewhere classified (principal); I96 Gangrene, not elsewhere classified; L97.412 Non-pressure chronic ulcer of right heel and midfoot with fat layer exposed; G82.21 Paraplegia, complete; B91 Sequelae of poliomyelitis | CPT/HCPCS: 11042; G0463 ==

== ENCOUNTER 2021-03-06 13:13 | Emergency (ER) | payer MEDICARE ==
[~2021-03-06] VITALS: Ht 154 cm; Wt 65.0 kg
[2021-03-06] MEDS ORDERED: diphenhydrAMINE 50 MG/ML INJ (BENADRYL) IVP ONE (13:45)
[2021-03-06 14:02] LABS: HEMATOCRIT 37 % (35-52); HEMOGLOBIN 11.6 G/DL (11.5-16.0); MEAN CORPUSCULAR HEMOGLOBIN 25 PG (25-34); MEAN CORPUSCULAR VOLUME 81 FL (80-99); WHITE BLOOD COUNT 8.1 10^3/uL (4.3-11.0)
[2021-03-06 14:03] LABS: BASOPHILS % (AUTO) 1 % (0-10); EOSINOPHILS # (AUTO) 0.1 10^3/uL (0.0-0.3); EOSINOPHILS % (AUTO) 1 % (0-10); LYMPHOCYTES # (AUTO) 1.5 X 10^3 (1.0-4.0); LYMPHOCYTES % (AUTO) 19 % (12-44); MEAN CORPUSCULAR HGB CONC 31 G/DL (32-36); MEAN PLATELET VOLUME 10.8 FL (7.4-10.4); MONOCYTES # (AUTO) 0.5 X 10^3 (0.0-1.0); MONOCYTES % (AUTO) 6 % (0-12); NEUTROPHILS % (AUTO) 73 % (42-75); PLATELET COUNT 286 10^3/uL (130-400)
[2021-03-06 14:18] LABS: POTASSIUM 3.8 MMOL/L (3.6-5.0)
[2021-03-06 14:19] LABS: BILIRUBIN,TOTAL 0.8 MG/DL (0.1-1.0); CALCIUM 9.8 MG/DL (8.5-10.1); CREATININE SERUM 0.62 MG/DL (0.60-1.30); TOTAL PROTEIN 6.9 GM/DL (6.4-8.2)
[2021-03-06 14:20] LABS: ALBUMIN 4.3 GM/DL (3.2-4.5)
--- NOTE | 2021-03-06 14:26 | ED General ---
General Chief Complaint: General Problems/Pain Stated Complaint: LEG CRAMPS, VOMITING Nursing Triage Note: PT WAS STARTED ON EFFEXOR YESTERDAY AND HAD LEG SPASMS LAST PM AND AGAIN THIS AM AFTER TAKING IT. Source of Information: Patient, Family Exam Limitations: No Limitations History of Present Illness Date Seen by Provider: Mar 06, 2021 Time Seen by Provider: 13:32 Initial Comments Here with report of stiffness in her legs and face. She started venlafaxine yesterday with her first dose last night and second dose this morning. Symptoms seems to have started after that. She has not been on this medicine before although there was question that she may have been. They believe now that she has never been on this medicine. Denies fever chills. Denies weakness otherwise but legs are stiff and she does have spasms occasionally. That seems to have settled down now. Timing/Duration: 12 Hours Severity: Moderate Associated Systoms: No Chest Pain, No Cough, No Fever/Chills, No Nausea/Vomiting, No Shortness of Air, No Weakness Allergies and Home Medications Allergies Coded Allergies: Penicillins (Verified Allergy, Unknown, 12/07/18) dimenhydrinate (Verified Allergy, Unknown, 12/07/18) Uncoded Allergies: silk sutures (Allergy, Unknown, 01/11/20) Home Medications Cephalexin 500 Mg Tablet, 500 MG PO BID Prescribed by: MJ ERICKSON on 12/08/18112 Esomeprazole Magnesium 20 Mg Capsule.dr, 20 MG PO DAILY Prescribed by: GISELLA ZARATE on 02/02/192235 Omeprazole 40 Mg Capsule.dr, 40 MG PO DAILY Prescribed by: MJ ERICKSON on 12/08/18112 Ondansetron 4 Mg Tab.rapdis, 4 MG PO Q6H PRN for NAUSEA/VOMITING-1ST LINE Prescribed by: MJ ERICKSON on 12/08/18112 Ondansetron 4 Mg Tab.rapdis, 4 MG PO Q6H PRN for NAUSEA/VOMITING Prescribed by: GISELLA ZARATE on 02/02/192236 Sucralfate 1 Gm Tablet, 1 GM PO QIDACHS Prescribed by: MJ ERICKSON on 12/08/18112 Sucralfate 1 Gm Tablet, 1 GM PO ACHS Prescribed by: GISELLA ZARATE on 7/2/19 2236 Patient Home Medication List Home Medication List Reviewed: Yes Review of Systems Review of Systems Constitutional: see HPI; No chills, No fever EENTM: other (Facial tightness and eyes appear more open than typical) Respiratory: No cough, No short of breath Cardiovascular: no symptoms reported Gastrointestinal: no symptoms reported Genitourinary: no symptoms reported Musculoskeletal: muscle stiffness, muscle twitching Skin: no symptoms reported Psychiatric/Neurological: No Symptoms Reported All Other Systems Reviewed Negative Unless Noted: Yes Past Nvtvuic-Jtvpma-Wqxmtl Hx Patient Social History Tobacco Use?: No Use of E-Cig and/or Vaping dev: No Substance use?: No Alcohol Use?: No Pt feels they are or have been: No Immunizations Up To Date First/Initial COVID19 Vaccinat: OCTOBER 2020 Second COVID19 Vaccination Himanshu: NOVEMBER 2020 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: 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 Seasonal Allergies Seasonal Allergies: Yes Past Medical History Surgeries: Yes (MULTIPLE ORTHO ON BILATERAL LEGS) Appendectomy, Orthopedic Respiratory: No Cardiac: No Neurological: No Genitourinary: Yes (INCONTINENCE) Gastrointestinal: Yes Gastroesophageal Reflux, Hiatal Hernia Musculoskeletal: Yes (POLIO) Foot Drop Endocrine: No HEENT: No Cancer: No Psychosocial: No Integumentary: No Blood Disorders: No Family Medical History Reviewed Nursing Family Hx Physical Exam Vital Signs Vital Signs - First Documented 03/06/21 13:43 Temp 36.5 Pulse 95 Resp 18 B/P (MAP) 138/58 (84) Pulse Ox 97 O2 Delivery Room Air Capillary Refill : Less Than 3 Seconds Height, Weight, BMI Height: 5'0" Weight: 138lbs. 0oz. 62.909788dq; 27.00 BMI Method:Stated General Appearance: No Apparent Distress, WD/WN HEENT: PERRL/EOMI, Pharynx Normal Neck: Non Tender, Supple Respiratory: Lungs Clear, Normal Breath Sounds Cardiovascular: Regular Rate, Rhythm, No Murmur Gastrointestinal: Non Tender, Soft Back: Normal Inspection, No CVA Tenderness, No Vertebral Tenderness Extremity: Other (Rigidity to the lower extremities and facial muscles) Neurologic/Psychiatric: Alert, Oriented x3 Skin: Normal Color, Warm/Dry Progress/Results/Core Measures Suspected Sepsis SIRS Temperature: Pulse: 95 Respiratory Rate: 18 Laboratory Tests 03/06/21 13:45: White Blood Count 8.1 Blood Pressure 138 /58 Mean: 84 Laboratory Tests 03/06/21 13:45: Creatinine 0.62, Platelet Count 286, Total Bilirubin 0.8 Results/Orders Lab Results Laboratory Tests Test 03/06/21 13:45 Range/Units White Blood Count 8.1 4.3-11.0 10^3/uL Red Blood Count 4.58 4.35-5.85 10^6/uL Hemoglobin 11.6 11.5-16.0 G/DL Hematocrit 37 35-52 % Mean Corpuscular Volume 81 80-99 FL Mean Corpuscular Hemoglobin 25 25-34 PG Mean Corpuscular Hemoglobin Concent 31 L 32-36 G/DL Red Cell Distribution Width 15.7 H 10.0-14.5 % Platelet Count 286 130-400 10^3/uL Mean Platelet Volume 10.8 H 7.4-10.4 FL Immature Granulocyte % (Auto) 0 % Neutrophils (%) (Auto) 73 42-75 % Lymphocytes (%) (Auto) 19 12-44 % Monocytes (%) (Auto) 6 0-12 % Eosinophils (%) (Auto) 1 0-10 % Basophils (%) (Auto) 1 0-10 % Neutrophils # (Auto) 6.0 1.8-7.8 X 10^3 Lymphocytes # (Auto) 1.5 1.0-4.0 X 10^3 Monocytes # (Auto) 0.5 0.0-1.0 X 10^3 Eosinophils # (Auto) 0.1 0.0-0.3 10^3/uL Basophils # (Auto) 0.0 0.0-0.1 10^3/uL Immature Granulocyte # (Auto) 0.0 0.0-0.1 10^3/uL Sodium Level 137 135-145 MMOL/L Potassium Level 3.8 3.6-5.0 MMOL/L Chloride Level 106 98-107 MMOL/L Carbon Dioxide Level 22 21-32 MMOL/L Anion Gap 9 5-14 MMOL/L Blood Urea Nitrogen 23 H 7-18 MG/DL Creatinine 0.62 0.60-1.30 MG/DL Estimat Glomerular Filtration Rate 97 BUN/Creatinine Ratio 37 Glucose Level 100 70-105 MG/DL Calcium Level 9.8 8.5-10.1 MG/DL Corrected Calcium 9.6 8.5-10.1 MG/DL Total Bilirubin 0.8 0.1-1.0 MG/DL Aspartate Amino Transf (AST/SGOT) 19 5-34 U/L Alanine Aminotransferase (ALT/SGPT) 12 0-55 U/L Alkaline Phosphatase 67 40-136 U/L Total Protein 6.9 6.4-8.2 GM/DL Albumin 4.3 3.2-4.5 GM/DL My Orders Orders - JAVED ARRIOLA MD Diphenhydramine Injection (Benadryl Inje (03/06/21 13:45) Cbc With Automated Diff (03/06/21 13:42) Comprehensive Metabolic Panel (03/06/21 13:42) Ed Iv/Invasive Line Start (03/06/21 13:42) Thyroid Stimulating Hormone (03/06/21 14:00) Medications Given in ED Current Medications Medications Dose Ordered Sig/Shiraz Route Start Time Stop Time Status Last Admin Dose Admin Diphenhydramine HCl 25 mg ONCE ONCE IVP 03/06/21 13:45 03/06/21 13:46 DC 03/06/21 13:49 25 MG Vital Signs/I&O 03/06/21 03/06/21 13:43 14:51 Temp 36.5 36.5 Pulse 95 70 Resp 18 16 B/P (MAP) 138/58 (84) 132/68 Pulse Ox 97 99 O2 Delivery Room Air Room Air Capillary Refill : Less Than 3 Seconds Blood Pressure Mean: 84 Progress Note : Progress Note Seen and evaluated. IV, Benadryl 25 mg IV, labs ordered. Monitor patient. TSH ordered but is a send out. Monitor patient. 1500: Overall patient doing much better. I do believe this is extraparametal side effects from the new edication. They have been instructed to stop this. Rigidity is improved and facial expressions are back to normal. Discharged home with return precautions. Patient and family verbalized understanding instructions and agreement with plan. Departure Impression Primary Impression: Extrapyramidal rigidity Disposition: 01 HOME, SELF-CARE Condition: Improved Departure-Patient Inst. Referrals: SELFRICK MD (PCP/Family) Primary Care Physician Patient Instructions: Adverse Drug Reactions, Adult (DC) Add. Discharge Instructions: All discharge instructions reviewed with patient and/or family. Voiced understanding. Stop taking the venlafaxine. Call your doctor and discuss other alternatives for your underlying concerns regarding the reason you are taking this medicine. Return for worse pain, fever, vomiting, weakness, breathing problems, rigidity or other concerns as needed. Drink plenty of fluids and eat a normal diet. Copy Copies To 1: SELF,JAVED HDZ MD, MD Mar 06, 2021 14:26
[2021-03-06 14:51] VITALS: BP 132/68
--- OUTSIDE RECORDS SUMMARY | 2021-03-09 12:02 | XMS REPORT | Clinical Summary ---
Author Author [facility] Health Organization [facility] Address Unknown Phone Unavailable Care Team Providers Care Marketing Manager Health Communications Name Role Phone Self, Nagi Colunga MD PCP Source Comments [facility] (Labor and Delivery) documents do not appear in the Encounter [facility] Health Allergies Comments Active Allergy Reactions Severity Noted Date Sensitive to cloth tape Adhesive Other (See High 06/17/2012 Comments) seizures Dimenhydrinate Other (See High 06/17/2012 Comments) REACTION IN PAST TO Silk SUTURE-CAUSE SEVERE HEALING PROBLEMS R/T SILK SUTURE Other Other (See High 06/17/2012 Comments) Penicillins Hives High 06/17/2012 Medications * Please verify current medications with patient. End Date Status Medication Sig Dispensed Refills Start Date Active cholecalciferol (FOR Take 1,000 0 VITAMIN D3) 1,000 unit Units by tabletIndications: mouth once a supplement day. Indications: supplement Active B complex vitamins (FOR B Take by 0 COMPLETE) mouth. tabletIndications: Indications: supplement supplement Active naproxen sodium (ALEVE) Take 1 0 220 mg capIndications: capsule by Pain mouth every bedtime, as needed. 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 Blood Pressure 78 09/04/2012 3:44 PM FRUIT PEELER Pulse 36.8 C (98.3 F) 09/04/2012 3:44 PM FRUIT PEELER Temperature 20 09/04/2012 3:44 PM FRUIT PEELER Respiratory Rate 98% 09/04/2012 3:44 PM FRUIT PEELER Oxygen Saturation - - Inhaled Oxygen Concentration 65.3 kg (144 lb) 09/02/2012 11:57 AM FRUIT PEELER Weight 152.4 cm (5') 09/02/2012 11:57 AM FRUIT PEELER Height 28.12 09/02/2012 11:57 AM MST Body Mass Index Plan of Treatment Health Maintenance Due Date Last Done Comments CT Colonography 1955 Colon cancer: DNA-based 1955 stool test (Cologuard) Sigmoidoscopy 1955 gFOBT or FIT 1955 COVID-19 Vaccine (1) 1967 Colonoscopy 2005 Colorectal Cancer 2005 Screening Mammogram 2005 DXA Scan 2020 Pneumococcal Vaccine: 65+ 2020 Years (1 of 1 - PPSV23) Influenza Vaccine (#1) 2021 HPV Vaccine Aged Out No longer eligible based on patient's age to complete this topic Pneumococcal Vaccine: Aged Out No longer eligib le based on patient's age to Pediatrics (0 to 5 Years) complete this topic and At-Risk Patients (6 to 64 Years) Results Not on filefrom Last 3 Months Insurance Type Payer Benefit Subscriber ID Effective Phone Address Plan / Dates Group Medicare MEDICARE ZZMEDICARE [id number] Effective [place] PART for all A&B dates [id number] 1 Advance Directives Patient Kettle Chipper Explanation Type Date Recorded Living Will CPR Directives Durable Medical POA Advanced Directives 06/23/2012 3:55 PM Date Inactivated Comments Code Status Date Activated 06/18/2012 8:27 PM Full Code 06/18/2012 3:34 PM Discussed with Patient/Family? Yes
--- OUTSIDE RECORDS SUMMARY | 2021-03-09 12:03 | XMS REPORT | Clinical Summary ---
Author Author [facility] Organization [facility] Address Unknown Phone Unavailable Care Team Providers Care Drill Foreman Name Role Phone Janeth Miranda Unavailable Unavailable Self, Nagi JARRELL PCP Source Comments Some departments are not documenting in the electronic medical record. If you d o not see the information that you expected, contact Release of Information in [facility] [address] Information Management department at [phone] for further assistan ce in locating additional records.[facility] Allergies Comments Active Allergy Reactions Severity Noted Date convulsions Dimenhydrinate SEE COMMENTS High 04/21/2013 Silk Sutures Unclassified Drug EDEMA 04/21/2013 Penicillins HIVES High 04/21/2013 Medications End Date Status Medication Sig Dispensed Refills Start Date Active Cholecalciferol (Vitamin Take 1 Cap by 0 D3) (VITAMIN D) 1,000 mouth daily. unit cap Active vitamins, B complex Tab Take 1 Tab by 0 mouth daily. Active Lysine 1,000 mg Tab Take 1 Tab by 0 mouth as Needed. Active ibuprofen (MOTRIN) 400 mg Take 400 mg 0 tablet by mouth every 6 hours as needed. Active aspirin EC 81 mg tablet Take 81 mg by 0 mouth daily. Active omeprazole DR(+) Take 40 mg by 0 (PRILOSEC) 40 mg capsule mouth daily. 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 Diagnosed and treated in [facility], relat ed to OCP Edema 04/23/2013 Kidney stones 04/23/2013 S/P partial hysterectomy 04/23/2013 S/P carpal tunnel release 04/23/2013 S/P tonsillectomy 04/23/2013 S/P knee surgery 04/23/2013 Overview: Formatting of this note might be differ ent from the original. S/p bilateral nerve release from polio Surgical History Surgery Date Site/Laterality Comments PARTIAL HYSTERECTOMY KIDNEY STONE SURGERY HX CARPAL TUNNEL RELEASE APPENDECTOMY HX TONSILLECTOMY KNEE SURGERY bilateral knee surgery nerv e release 2nd to polio Medical History Medical History Date Comments Kidney stones Edema PE (pulmonary embolism) was tx'd with asa at tributed to birthcontrol Polio as a child Wheelchair bound since 1973 2nd to polio Claudication (HCC) Shingles Family History Medical History Relation Name Comments Cancer Maternal Aunt Cancer Mother breast cancer Relation Name Status Comments Father (Age 80) Maternal Aunt Mother Alive Social History Date Tobacco Use Types Packs/Day Years Used Never Smoker Smokeless Tobacco: Never Used Drinks/Week oz/Week Comments Alcohol Use No Sex Assigned at Date Recorded Not on file Last Filed Vital Signs Reading Time Taken Comments Vital Sign 126/80 07/08/2013 2:00 PM 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 Blood Pressure 87 07/08/2013 2:00 PM 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 Pulse - - Temperature - - Respiratory Rate - - Oxygen Saturation - - Inhaled Oxygen Concentration 74.8 kg (165 lb) 07/08/2013 2:00 PM 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 Weight 152.4 cm (5') 07/08/2013 2:00 PM 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 Height 32.22 07/08/2013 2:00 PM 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 Body Mass Index Plan of Treatment Health Maintenance Due Date Last Done Comments MEDICARE ANNUAL WELLNESS 1955 VISIT HIV SCREENING 1970 DTAP/TDAP VACCINES (1 - 1973 Tdap) HEPATITIS C SCREENING 1973 PHYSICAL (COMPREHENSIVE) 1973 EXAM BREAST CANCER SCREENING 1995 COLORECTAL CANCER 2005 SCREENING SHINGLES RECOMBINANT 2005 VACCINE (1 of 2) OSTEOPOROSIS 2020 SCREENING/MONITORING PNEUMONIA (PPSV23) 2020 VACCINE (1 of 1 - PPSV23) INFLUENZA VACCINE 05/04/2021 Results Not on filefrom Last 3 Months Insurance Type Payer Benefit Subscriber ID Effective Phone Address Plan / Dates Group Medicare MEDICARE MEDICARE [id number] 1991-P PART A AND resent B [id number] (Home) [place] [phone] Advance Directives Patient Form Builder Helper Explanation Type Date Recorded Advance 04/06/2013 4:14 PM Directive/DPOA
== END 2021-03-06 15:04 | disposition home or self-care (01) ==
LOC: EDUNIT# 13:13 → ER FS 13:16
DX: G25.9 Extrapyramidal and movement disorder, unspecified (principal); K21.9 Gastro-esophageal reflux disease without esophagitis; Z79.899 Other long term (current) drug therapy
CPT/HCPCS: 36415; 80053; 84443; 85025

== ENCOUNTER → 2021-03-09 | Outpatient (CLI) | payer MEDICARE ==
[2021-03-09 10:04] LABS: BASOPHILS # (AUTO) 0.1 10^3/uL (0.0-0.1); BASOPHILS % (AUTO) 1 % (0-10); EOSINOPHILS # (AUTO) 0.2 10^3/uL (0.0-0.3); EOSINOPHILS % (AUTO) 3 % (0-10); HEMATOCRIT 38 % (35-52); HEMOGLOBIN 11.6 g/dL (11.5-16.0); LYMPHOCYTES # (AUTO) 1.6 10^3/uL (1.0-4.0); LYMPHOCYTES % (AUTO) 26 % (12-44); MEAN CORPUSCULAR HEMOGLOBIN 26 pg (25-34); MEAN CORPUSCULAR HGB CONC 30 g/dL (32-36); MEAN CORPUSCULAR VOLUME 84 fL (80-99); MONOCYTES # (AUTO) 0.5 10^3/uL (0.0-1.0); MONOCYTES % (AUTO) 8 % (0-12); NEUTROPHILS # (AUTO) 3.9 10^3/uL (1.8-7.8); NEUTROPHILS % (AUTO) 62 % (42-75); PLATELET COUNT 263 10^3/uL (130-400); WHITE BLOOD COUNT 6.2 10^3/uL (4.3-11.0)
[2021-03-09 10:28] LABS: ALBUMIN 3.9 GM/DL (3.2-4.5); CALCIUM 9.8 MG/DL (8.5-10.1); CREATININE SERUM 0.73 MG/DL (0.60-1.30); POTASSIUM 4.3 MMOL/L (3.6-5.0); TOTAL PROTEIN 6.5 GM/DL (6.4-8.2)
--- NOTE | 2021-03-09 10:40 | Diagnostic Imaging Report ---
Indication: Arthritis and pain. Findings: Frontal and lateral cervical radiographs are performed. There is severe tyson-cervical spondylosis and facet arthrosis. There is marked disc space narrowing, endplate sclerosis and osteophytes with a prominent sclerotic hypertrophic facet arthrosis. The alignment within normal limits. The prevertebral space normal. Statures unremarkable and no fracture can be detected. There are at least mild right-sided carotid atherosclerotic vascular calcifications, the pulmonary apices unremarkable. Impression: 1. This patient has severe degenerative changes to the discs, endplates and facets throughout the cervical spine. The magnitude of degenerative changes would typically be associated with multilevel stenoses of the spinal canal and/or neural foramen. If there is radiculopathy and myelopathy or otherwise indicated, consider nonemergent outpatient followup with MRI to better characterize suspected stenoses. No acute appearing abnormality. 2. Atherosclerotic carotid vascular calcifications are present at least on the right. Dictated by: Dictated on workstation # [id number]
== END ==
LOC: RAD 09:13
PROVIDERS: ATTEND Family Medicine
DX: Z13.220 Encounter for screening for lipoid disorders (principal); M47.812 Spondylosis without myelopathy or radiculopathy, cervical region; I48.91 Unspecified atrial fibrillation; M54.2 Cervicalgia; E78.2 Mixed hyperlipidemia; E55.9 Vitamin D deficiency, unspecified; R53.83 Other fatigue; G14 Postpolio syndrome
CPT/HCPCS: 36415; 72040; 80053; 80061; 82306; 82607; 84443; 85025

== ENCOUNTER → 2021-03-09 | Outpatient (CLI) | payer MEDICARE | LOC: WOUNDCARE 08:19 | PROVIDERS: ATTEND Orthopaedic Surgery Hand Surgery | DX: I89.0 Lymphedema, not elsewhere classified (principal); L97.412 Non-pressure chronic ulcer of right heel and midfoot with fat layer exposed; G82.21 Paraplegia, complete; B91 Sequelae of poliomyelitis; I96 Gangrene, not elsewhere classified | CPT/HCPCS: 11042; G0463 ==

== ENCOUNTER → 2021-03-21 | Outpatient (CLI) | payer MEDICARE ==
--- NOTE | 2021-03-21 11:32 | Diagnostic Imaging Report ---
PROCEDURE: MR imaging cervical spine without contrast. TECHNIQUE: Multiplanar, multisequence MR imaging of the cervical spine was performed without contrast. INDICATION: Neck pain and multiple falls. COMPARISON: No prior MRI cervical spine studies are available for comparison. FINDINGS: The curvature and alignment of the cervical spine are normal. The vertebral body marrow signal is normal. No geographic marrow lesion or marrow edema is identified. There is severe degenerative disc disease at all levels of the cervical spine. All levels demonstrate significant disc space narrowing and marginal osteophyte formation. The cervical cord does show homogeneous signal intensity and normal morphology. No abnormal cord signal is identified. The craniocervical junction is unremarkable. C2-C3: Central canal and neuroforamina are widely patent. C3-C4: Central canal and neuroforamina are patent. C4-C5: Endplate osteophytes indent the ventral thecal sac. There is mild narrowing of the canal. There also appears to be [id number] narrowing of the right neuroforamen. The left neuroforamen is patent. C5-C6: Endplate osteophytes indent the ventral thecal sac and produce mild narrowing of the canal. There is mild to moderate right-sided neuroforaminal narrowing. Left neuroforamen is patent. C6-C7: Endplate osteophytes indent the ventral thecal sac. There is mild narrowing of the canal. There is mild narrowing of the right neuroforamen. The left neuroforamen is patent. C7-T1: The central canal is patent. There does appear to be moderate narrowing of the bilateral neuroforamina. Paraspinous tissues are unremarkable. IMPRESSION: Multilevel cervical spondylosis with multilevel central canal and neuroforaminal narrowing described level by level above. Dictated by: Dictated on workstation # [id number]
== END ==
LOC: RAD 09:07
PROVIDERS: ATTEND Family Medicine
DX: M47.812 Spondylosis without myelopathy or radiculopathy, cervical region (principal); M48.02 Spinal stenosis, cervical region; R29.6 Repeated falls
CPT/HCPCS: 72141

== ENCOUNTER → 2021-03-22 | Outpatient (CLI) | payer MEDICARE | LOC: WOUNDCARE 08:14 | PROVIDERS: ATTEND Surgery | DX: I89.0 Lymphedema, not elsewhere classified (principal); I96 Gangrene, not elsewhere classified; L97.413 Non-pressure chronic ulcer of right heel and midfoot with necrosis of muscle; G82.20 Paraplegia, unspecified; B91 Sequelae of poliomyelitis | CPT/HCPCS: 99213 ==

== ENCOUNTER → 2021-03-30 | Outpatient (CLI) | payer MEDICARE | LOC: WOUNDCARE 09:58 | PROVIDERS: ATTEND Surgery | DX: I96 Gangrene, not elsewhere classified (principal); L89.892 Pressure ulcer of other site, stage 2; G82.21 Paraplegia, complete; B91 Sequelae of poliomyelitis | CPT/HCPCS: A6197; A6212; G0463; 99213 ==

== ENCOUNTER → 2021-04-12 | Outpatient (CLI) | payer MEDICARE | LOC: WOUNDCARE 08:24 | PROVIDERS: ATTEND Surgery | DX: L89.892 Pressure ulcer of other site, stage 2 (principal); G82.21 Paraplegia, complete; B91 Sequelae of poliomyelitis | CPT/HCPCS: 99212 ==